=== PATIENT | female | born 1955 | race Caucasian/White ===

== ENCOUNTER → 2020-01-29 14:00 | Outpatient (CLI) | payer OTHER, SELFPAY ==
--- NOTE | ~2020-01-29 | MM_ITS ---
EXAMINATION: MM screening [facility] BI w martha HISTORY: Screening mammogram TECHNIQUE: Craniocaudal and mediolateral oblique 3-D tomosynthesis images were obtained and synthetic 2-D images were generated. CAD analysis was submitted and interpreted. COMPARISON: 12/13/2018, 06/20/2017, 07/07/2016 BREAST PARENCHYMAL COMPOSITION: There are scattered areas of fibroglandular density. FINDINGS: There is no evidence of suspicious mass, calcification, or architectural distortion to sugg est malignancy in either breast. There has been no suspicious interval change. IMPRESSION: 1. No mammographic evidence of malignancy. 2. Recommend routine screening mammography in one year. BI-RADS Category 1: Negative Reviewed, dictated and finalized at location A.
== END ==
PROVIDERS: PCP Nurse Practitioner Adult Health; Visit Provider Nurse Practitioner Adult Health
DX: Z12.31 Encounter for screening mammogram for malignant neoplasm of breast (principal)
CPT/HCPCS: 77063; 77067

== ENCOUNTER → 2021-01-04 08:28 | Outpatient (CLI) | payer OTHER, SELFPAY ==
--- NOTE | ~2021-01-04 | XR_ITS ---
EXAMINATION: XR thoracic spine 3V DATE: 01/04/2021 08:47 INDICATION: Thoracic back pain TECHNIQUE: AP, lateral and lateral swimmer's views of the thoracic spine were obtained. COMPARISON: 06/09/2019 FINDINGS: The vertebral body heights and alignment are normal. There is mild loss of intervertebral d isc space in the midthoracic spine. There are bridging osteophytes at multiple levels in the spine, c onsistent with diffuse idiopathic skeletal hyperostosis (DISH). There is no fracture. Moderate to sev ere cervical spondylosis is noted. IMPRESSION: 1. Diffuse idiopathic skeletal hyperostosis without acute findings. Reviewed, dictated and finalized at location A.
== END ==
PROVIDERS: PCP Nurse Practitioner Adult Health; Visit Provider Nurse Practitioner Adult Health
DX: M47.812 Spondylosis without myelopathy or radiculopathy, cervical region (principal)
CPT/HCPCS: 72072

== ENCOUNTER → 2021-05-17 15:17 | Outpatient (CLI) | payer OTHER, SELFPAY ==
--- NOTE | ~2021-05-17 | MM_ITS ---
EXAMINATION: MM screening [facility] BI w martha HISTORY: Screening TECHNIQUE: Craniocaudal and mediolateral oblique 3-D tomosynthesis images were obtained and synthetic 2-D images were generated. CAD analysis was submitted and interpreted. COMPARISON: Comparison to multiple prior studies sequentially, with oldest reviewed study dated 06/14. BREAST PARENCHYMAL COMPOSITION: There are scattered areas of fibroglandular density. FINDINGS: There is no evidence of suspicious mass, calcification, or architectural distortion to sugg est malignancy in either breast. There has been no suspicious interval change. IMPRESSION: 1. No mammographic evidence of malignancy. 2. Recommend routine screening mammography in one year. BI-RADS Category 1: Negative Reviewed, dictated and finalized at location A.
== END ==
PROVIDERS: PCP Nurse Practitioner Adult Health; Visit Provider Obstetrics & Gynecology
DX: Z12.31 Encounter for screening mammogram for malignant neoplasm of breast (principal)
CPT/HCPCS: 77063; 77067

== ENCOUNTER → 2022-04-18 10:29 | Outpatient (CLI) | payer OTHER, SELFPAY ==
--- NOTE | ~2022-04-18 | XR_ITS ---
EXAM: XR knee LT 3V DATE: 04/18/2022 10:41 HISTORY: NO INJURY ANTERIOR LEFT KNEE PAIN . COMPARISON: None available. FINDINGS: Normal mineralization. No fracture or dislocation. No lytic or blastic lesion. Moderate tr icompartmental osteophytosis. Lateral subluxation and joint space narrowing at the patellofemoral carlos nt. No erosion or periosteal change. Soft tissues within normal limits. Small volume joint effusion. IMPRESSION: Moderate tricompartmental osteoarthritis, worst in the patellofemoral compartment. Reviewed, dictated and finalized at location K. IMPRESSION: Moderate tricompartmental osteoarthritis, worst in the patellofemor al compartment.
== END ==
PROVIDERS: PCP Nurse Practitioner Adult Health; Visit Provider Nurse Practitioner Adult Health
DX: M17.12 Unilateral primary osteoarthritis, left knee (principal)
CPT/HCPCS: 73562

== ENCOUNTER 2022-09-11 08:54 | Outpatient (CLI) | payer OTHER, SELFPAY ==
--- NOTE | ~2022-09-11 | DEXA_ITS ---
Bone Density Report Name: NOHEMI RUSH Age: 67 Sex: Female Ethnicity: White Date of : 1955 Indication: postmenopausal; screening for osteoporosis; hysterectomy; Referring Provider: Ivette, Emma Marie Study: Bone densitometry was performed. Exam Date: September 11, 2022 Accession number: [id number] Bone Density: Region BMD T-score Z-score Classification AP Spine (L1, L2) 1.343 3.3 5.3 Normal Femoral Neck (Left) 1.056 1.9 3.6 Normal Total Hip (Left) 1.273 2.7 4.2 Normal Femoral Neck (Right) 1.014 1.5 3.3 Normal Total Hip (Right) 1.187 2.0 3.5 Normal Total Hip Mean 1.230 2.4 3.9 Normal World Health Organization criteria for BMD impression classify patients as: Normal (T-score at or above -1.0), Osteopenia (T-score between -1.0 and -2.5), or Osteoporosis (T-score at or below -2.5). 10-year Fracture Risk: FRAX not reported because: All T-scores for Spine Total, Hip Total, Femoral Neck at or above -1.0 Previous Exams: Region Exam Age BMD T-score BMD Change BMD Change Date g/cm2 vs Baseline vs Previous AP Spine(L1, L2) 09/11/2022 67 1.343 3.3 0.058 0.036 06/16/2014 59 1.306 3.0 0.021 0.044* 06/27/2011 56 1.262 2.6 -0.023 0.047* 03/14/2007 52 1.215 2.1 -0.070 -0.070 10/14/2003 48 1.285 2.8 Total Hip(Left) 09/11/2022 67 1.273 2.7 0.007 0.005 06/20/2017 62 1.268 2.7 0.002 0.040* 06/16/2014 59 1.228 2.3 -0.038 -0.008 06/27/2011 56 1.235 2.4 -0.031 0.000 03/14/2007 52 1.235 2.4 -0.031 -0.031 10/14/2003 48 1.266 2.7 Total Hip(Right) 09/11/2022 67 1.187 2.0 -0.018 -0.050 06/20/2017 62 1.238 2.4 0.032 0.058* 06/16/2014 59 1.180 2.0 -0.025 -0.004 06/27/2011 56 1.184 2.0 -0.021 0.029* 03/14/2007 52 1.155 1.7 -0.050 -0.050 10/14/2003 48 1.206 2.2 *Denotes significance at 95% confidence level, LSC for AP Spine = 0.022 g/cm2, LSC for Total Hip = 0.027 g/cm2 Clinical Information Provided by Patient: Has used the following medications: HRT (i.e. estrogen/hormone therapy), Vitamin D, MTV Has the following medical conditions: Hysterectomy Patient maximum height was 68 Menopause Age: 38 No regular weight bearing exercise Onset of menses at age 10 Numb
== END 2022-09-11 08:55 ==
PROVIDERS: PCP Nurse Practitioner Family; Visit Provider Nurse Practitioner Family
DX: N95.1 Menopausal and female climacteric states (principal)
CPT/HCPCS: 77080

== ENCOUNTER → 2022-09-20 10:20 | Outpatient (CLI) | payer OTHER, SELFPAY ==
--- NOTE | ~2022-09-20 | MM_ITS ---
EXAMINATION: MM screening [facility] BI w martha HISTORY: Screening mammogram TECHNIQUE: Craniocaudal and mediolateral oblique 3-D tomosynthesis images were obtained and synthetic 2-D images were generated. CAD analysis was submitted and interpreted. COMPARISON: 05/17/2021, 01/29/2020, 12/13/2018 BREAST PARENCHYMAL COMPOSITION: There are scattered areas of fibroglandular density. FINDINGS: No suspicious mass, calcification, or architectural distortion are identified in either trent ast to suggest malignancy. There has been no suspicious interval change. IMPRESSION: 1. No mammographic evidence of malignancy. 2. Recommend routine screening mammography in one year. BI-RADS Category 1: Negative Reviewed, dictated and finalized at location A. ISITIONS EDITOR
== END ==
PROVIDERS: PCP Nurse Practitioner Family; Visit Provider Obstetrics & Gynecology
DX: Z12.31 Encounter for screening mammogram for malignant neoplasm of breast (principal)
CPT/HCPCS: 77063; 77067

== ENCOUNTER → 2023-03-11 11:31 | Outpatient (CLI) | payer OTHER, SELFPAY ==
--- NOTE | ~2023-03-11 | XR_ITS ---
Right Hand Technique: PA, oblique, and lateral views were obtained. Clinical History: Pain Findings: No acute fracture or dislocation is seen. Osseous alignment is anatomic. Joint spaces are p reserved. Soft tissues are unremarkable. Impression: Unremarkable right hand. Reviewed, dictated and finalized at location M. Impression: Unremarkable right hand.
== END ==
PROVIDERS: PCP Nurse Practitioner Family; Visit Provider Family Medicine
DX: M79.644 Pain in right finger(s) (principal)
CPT/HCPCS: 73130

== ENCOUNTER 2023-06-14 02:07 | Day surgery (SDC) | payer OTHER, SELFPAY ==
[2023-06-05 13:13] VITALS: BMI 33.7
--- NOTE | 2023-06-05 13:15 | PC.NURSE ---
Report to the Outpatient Waiting Room, entrance under the green pavilion located off [facility], at time _0700_ on date _06-14-2023_. Planned Procedure Time: _0900_. Time changes happen often and if your time is changed the preop area will call you the afternoon before. - You and your visitor will be asked to self-screen and do not enter if you have any COVID symptoms. - A mask is optional within the hospital at this time. Patients may have clear liquids (water, carbonated beverages, clear teas, apple juice) until 3 hours prior to surgery with a maximum of 20 ounces. - No food from midnight until time of surgery Take the following medications with a SIP of water the morning of surgery: ___Metoprolol DO NOT STOP ANY OF YOUR OTHER PRESCRIPTION MEDICATIONS PRIOR TO SURGERY ?EXCEPT THE FOLLOWING Medications to discontinue per physician All vitamins Date to take last [id number] Please no make-up, nail frisian, hairspray, perfume, deodorant, or body powder the day of surgery. No jewelry (including any body piercings) or valuables the day of surgery, leave them at home. Please take a shower or bath the night before, or the morning of, surgery with an antibacterial soap. Wear comfortable, loose fitting clothing. - Jewelry must be removed prior to entering the operating room. Rings and piercings that are not removed may be cut off. - The hospital will not accept responsibility for valuables. - Please leave all valuables, including medications, at home the day of surgery. If you are going home after surgery, a licensed subway train driver must drive you home. - NO public transportation without another adult if you receive anesthesia. - We recommend that an adult stay with you for 24 hours following discharge. - We also recommend that you do not drive, make important decision, drink alcoholic beverages, or take any drugs that were not prescribed by your health care provider for at least 24 hours after your discharge time. Follow any additional instructions given to you from your surgeon. If you or anyone in your household have experienced Covid symptoms in the past week, please notify your surgeon or the nurse liaison at the phone number below for possible testing. Telephone instructions given to _Shirley_and asked if any additional questions and then verbalized understanding. Patient advised to call surgeon office or pre surgery nurse liaison [phone] if any additional questions.
--- NOTE | 2023-06-08 18:23 | PM.IMHP ---
H&P: HPI History of Present Illness Date/Time: 06/08/23 18:23 Chief Complaint: incontinence Narrative: WILDER documented on urodynamics Review of Systems Review of Systems: All systems reviewed & are unremarkable except as noted in HPI and below [facility] Past Medical History Medical History Anemia Anxiety and depression Asthma Bronchitis Chronic renal failure, stage 3 (moderate) Cyst of ovary Frequent UTI High cholesterol Screening mammogram, encounter for Seasonal allergies Sleep apnea Surgical History Surgical History History of hysterectomy (~1992) partial History of left salpingo-oophorectomy (02/10/18) removed Dr. Cali @ [facility], (L) ovary with serous cystadenoma History of removal of skin mole (~2008) (L) breast History of surgery on arm (~2009) (L) arm calcium deposit removed History of tonsillectomy (~1957) Family History Family History Mother Atrial fibrillation Hypertension Diabetes mellitus Cerebrovascular accident Chronic renal failure stent in kidney Grandparent Hypertension maternal grandmother Breast cancer maternal grandmother paternal grandmother Alzheimer's disease maternal grandmother Father Cerebrovascular accident Macular degeneration Other Breast cancer maternal aunt Social History Social History Smoking status: Never smoker Second hand tobacco smoke exposure: No Alcohol intake: current Drinks per week: 3 Substance use: never Substance use type: does not use Living arrangements: with family Additional living arrangements comments: Occupation/Education: retired Gender identity (if verbalized by the patient): Female Sexual Orientation (if Verbalized by the Patient): Straight or Heterosexual Spiritual care concerns: No Meds Home Medications and Allergies Home Medications Medication Instructions Recorded Confirmed Type cetirizine 10 mg capsule 10 mg PO DAILY 12/21/19 06/05/23 History cholecalciferol (vitamin D3) 50 50 mcg PO DAILY 12/21/19 06/05/23 History mcg (2,000 unit) capsule metoprolol succinate 50 mg capsule 50 mg PO DAILY 12/21/19 06/05/23 History sprinkle, ext. release 24 hr montelukast 10 mg tablet 10 mg PO DAILY 12/21/19 06/05/23 History multivitamin 1 tablet PO DAILY 12/21/19 06/05/23 History atorvastatin 20 mg tablet 20 mg PO DAILY 07/02/22 06/05/23 History golimumab 12.5 mg/mL intravenous 12.5 mg IV ONCE 07/02/22 06/05/23 History solution (Simponi ARIA) estradiol 0.5 mg tablet 0.5 mg PO DAILY #90 tabs 07/18/22 06/05/23 Rx diclofenac sodium 75 mg 75 mg PO DAILY 06/05/23 06/05/23 History tablet,delayed release famotidine 40 mg tablet 40 mg PO DAILY 06/05/23 06/05/23 History gabapentin 300 mg capsule 300 mg PO DAILY PRN Pain 06/05/23 06/05/23 History lisinopril 10 mg tablet 10 mg PO DAILY 06/05/23 06/05/23 History prednisone 5 mg tablet 5 mg PO DAILY PRN Pain 06/05/23 06/05/23 History tramadol 50 mg tablet 50 mg PO QID PRN Pain 06/05/23 06/05/23 History Allergies Allergy/AdvReac Type Severity Reaction Status Date / Time naproxen [From Anaprox] Allergy Severe Rash Verified 06/05/23 13:26 amlodipine Allergy Mild swelling Verified 06/05/23 13:26 and rash Exam Narrative: NAD Normal breathing + urethral mobility Assessment and Plan Assessment and plan (1) WILDER (stress urinary incontinence, female): Code(s): N39.3 - Stress incontinence (female) (male) Status: Acute Assessment and Plan: urethral slking. Risks bennifits and alternative discussed and documented in office chart
--- NOTE | 2023-06-13 15:10 | WPDANESEPPF ---
Anes - Initial Pre Proc Eval Procedure: Operation Date: 06/14/23 09:00 Proposed Procedures p Urethral Sling - Octaviano Pires MD Date/Time: 06/13/23 15:10 Surgeon: Octaviano Pires MD Pre Op Diagnosis: stress incont Patient Data Age: 68 Gender: F Height: 1.7 m Weight: 97.7 kg Allergies Allergy/AdvReac Type Severity Reaction Status Date / Time naproxen [From Anaprox] Allergy Severe Rash Verified 06/05/23 13:26 amlodipine Allergy Mild swelling Verified 06/05/23 13:26 and rash Home Medications Medication Instructions Recorded Confirmed Type cetirizine 10 mg capsule 10 mg PO DAILY 12/21/19 06/05/23 History cholecalciferol (vitamin D3) 50 50 mcg PO DAILY 12/21/19 06/05/23 History mcg (2,000 unit) capsule metoprolol succinate 50 mg capsule 50 mg PO DAILY 12/21/19 06/05/23 History sprinkle, ext. release 24 hr montelukast 10 mg tablet 10 mg PO DAILY 12/21/19 06/05/23 History multivitamin 1 tablet PO DAILY 12/21/19 06/05/23 History atorvastatin 20 mg tablet 20 mg PO DAILY 07/02/22 06/05/23 History golimumab 12.5 mg/mL intravenous 12.5 mg IV ONCE 07/02/22 06/05/23 History solution (Simponi ARIA) estradiol 0.5 mg tablet 0.5 mg PO DAILY #90 tabs 07/18/22 06/05/23 Rx diclofenac sodium 75 mg 75 mg PO DAILY 06/05/23 06/05/23 History tablet,delayed release famotidine 40 mg tablet 40 mg PO DAILY 06/05/23 06/05/23 History gabapentin 300 mg capsule 300 mg PO DAILY PRN Pain 06/05/23 06/05/23 History lisinopril 10 mg tablet 10 mg PO DAILY 06/05/23 06/05/23 History prednisone 5 mg tablet 5 mg PO DAILY PRN Pain 06/05/23 06/05/23 History tramadol 50 mg tablet 50 mg PO QID PRN Pain 06/05/23 06/05/23 History Patient hx anesthesia problems: none Family hx anesthesia problems: none Results Review: All pre-operative results and documents have been reviewed as part of the pre-operative evaluation. [facility] Past Medical History Medical History (Updated 06/13/23 @ 15:10 by Jose Daniel Tran DO) Anemia Anxiety and depression Asthma Bronchitis Chronic renal failure, stage 3 (moderate) Cyst of ovary Frequent UTI High cholesterol Hypertension Screening mammogram, encounter for Seasonal allergies Sleep apnea Surgical History Surgical History History of hysterectomy (~1992) partial History of left salpingo-oophorectomy (02/10/18) removed Dr. Cali @ [facility], (L) ovary with serous cystadenoma History of removal of skin mole (~2008) (L) breast History of surgery on arm (~2009) (L) arm calcium deposit removed History of tonsillectomy (~1957) Family History Family History Mother Atrial fibrillation Hypertension Diabetes mellitus Cerebrovascular accident Chronic renal failure stent in kidney Grandparent Hypertension maternal grandmother Breast cancer maternal grandmother paternal grandmother Alzheimer's disease maternal grandmother Father Cerebrovascular accident Macular degeneration Other Breast cancer maternal aunt Social History Social History Smoking status: Never smoker Second hand tobacco smoke exposure: No Alcohol intake: current Drinks per week: 3 Substance use: never Substance use type: does not use Living arrangements: with family Additional living arrangements comments: Occupation/Education: retired Gender identity (if verbalized by the patient): Female Sexual Orientation (if Verbalized by the Patient): Straight or Heterosexual Spiritual care concerns: No Anes - Eval Final PreProcedure Day of Procedure 06/13/23 15:10 Patient weight: obese Heart: regular rate and rhythm Lungs: clear to auscultation Airway: Mallampati scale class II Neurological: alert and oriented Last oral intake: >/= 8 hours ASA c
[2023-06-14 07:07] VITALS: BP 160/80; PULSE 57; RESP 16; TEMP 36.4; O2SAT 98
[2023-06-14 07:10] VITALS: BMI 33.6
--- NOTE | 2023-06-14 07:19 | WPDHPUPDATE1 ---
History and Physical Update Update Date/Time: 06/14/23 07:19 History and Physical has been reviewed, including an updated exam of the patient. There are NO changes in the patient's condition. Risks, benefits, and alternatives have been discussed and questions answered. Patient agrees to proceed with procedure.
[2023-06-14] MEDS: LACTATED RINGERS 1,000 ML 30 ML IV CONT (08:15)
[2023-06-14] MEDS: ceFAZolin 2 GM/D5W 50 ML 2 GM/50 ML BAG IVPB (09:00)
--- NOTE | 2023-06-14 09:34 | SUR.OPER ---
ebl 30
[2023-06-14 09:42] VITALS: BP 144/75; PULSE 59; RESP 16; O2SAT 100
[2023-06-14] MEDS: BUPIVACAINE/EPINEPHRINE 0.5% 50 ML VIAL 10 ML INFILTRATE (09:51)
--- NOTE | 2023-06-14 09:52 | W.PM.PROC2 ---
Procedure Note - Detailed Date of Procedure 06/14/23 Pre-op Diagnosis stress incont Post-op Diagnosis Same Procedure Performed mid urethral sling cystoscopy Surgeon Octaviano Pires MD Anesthesia MAC and Local Indications This is a female with confirm stress urinary incontinence. She desires surgical correction. She understands the risks of bleeding, infection, injury to the urinary tract, vaginal mesh extrusion, urinary tract mesh erosion, obstructive voiding requiring a secondary procedure, hip and leg pain, dyspareunia, inability to improve overactive bladder symptoms. She agrees to proceed. Description of Procedure She was correctly identified. Informed consent obtained. She was brought the operating room. She was given appropriate anesthesia. She was given appropriate perioperative antibiotics. A time-out performed. I marked out the site of the inner thigh incisions. I anesthetized the skin and made those incisions. I anesthetized the anterior vaginal wall over the mid urethra. I made a 1 cm incision. I dissected out laterally taking great care not to injure the refilled vaginal wall. I passed the helical trocars. First on the left. Then on the right. I did this from the thigh incision towards the vaginal incision. The sling was connected to the trocars and brought out through the thigh incision. I tensioned the sling appropriately. I cut and the plastic sheaths. I then closed the incision with 2 0 Vicryl. On cystoscopy there is no tumors or surgical artifact. There was no surgical artifact in the urethra. I cut the excess sling material. Close incisions with glue. She was awakened and transferred to the PACU in stable condition. Implants Urethral sling Drains No Packing No Pathology None sent Complications No immediate complications Condition Stable Disposition PACU
[2023-06-14 10:10] VITALS: BP 162/81; PULSE 54; O2SAT 99
[2023-06-14 10:40] VITALS: BP 167/79; PULSE 47
== END 2023-06-14 10:58 | disposition home or self-care (01) ==
PROVIDERS: PCP Nurse Practitioner Family; Visit Provider Urology
PROC: (CPT 57288; principal; 2023-06-14 09:00)
DX: N39.3 Stress incontinence (female) (male) (principal); D64.9 Anemia, unspecified; E78.00 Pure hypercholesterolemia, unspecified; Z79.891 Long term (current) use of opiate analgesic; J45.909 Unspecified asthma, uncomplicated; G47.30 Sleep apnea, unspecified; F41.8 Other specified anxiety disorders; N18.30 Chronic kidney disease, stage 3 unspecified; E66.9 Obesity, unspecified; Z68.33 Body mass index [BMI] 33.0-33.9, adult; Z82.49 Family history of ischemic heart disease and other diseases of the circulatory system; Z80.3 Family history of malignant neoplasm of breast
CPT/HCPCS: 57288; C1771; J0690; J2250; J2704; J3010; J7030; J7120

== ENCOUNTER 2023-10-28 16:46 | Outpatient (CLI) | payer MEDICARE, SELFPAY ==
--- NOTE | ~2023-10-28 | XR_ITS ---
EXAMINATION: XR foot RT min 3V DATE: 10/28/2023 17:08 INDICATION: Right foot pain. TECHNIQUE: 3 views of right foot were obtained. COMPARISON: None. FINDINGS: Bone alignment is normal. No fracture. There is mild osteoarthritis of first metatarsophala ngeal joint and some of the interphalangeal joints and midfoot joints. There are enthesophytes at the posterior and plantar aspects of calcaneal tuberosity. IMPRESSION: 1. Mild polyarticular osteoarthritis. Reviewed, dictated and finalized at location E.
--- NOTE | ~2023-10-28 | XR_ITS ---
EXAMINATION: XR foot LT min 3V DATE: 10/28/2023 17:08 INDICATION: Left foot pain. TECHNIQUE: 3 views of left foot were obtained. COMPARISON: None. FINDINGS: There are changes of bunionectomy with 2 screws in first metatarsal and screw in first prox imal phalanx. There is a healed osteotomy of neck of second metatarsal with screw fixation. No acute fracture. There is mild osteoarthritis of first metatarsophalangeal joint and some of the interphalan geal joints. There are enthesophytes at the posterior and plantar aspects of calcaneal tuberosity. IMPRESSION: 1. Mild polyarticular osteoarthritis. Reviewed, dictated and finalized at location E.
--- NOTE | ~2023-10-28 | XR_ITS ---
EXAMINATION: XR hip RT 2V w AP pelvis DATE: 10/28/2023 17:08 INDICATION: Right hip pain. TECHNIQUE: An anteroposterior view of the pelvis and 2 views of right hip were obtained. COMPARISON: None. FINDINGS: There is lumbar dextrocurvature and severe spondylosis. No fracture. There is mild osteoart hritis of the hips. IMPRESSION: 1. Mild osteoarthritis of the hips. Reviewed, dictated and finalized at location E.
== END 2023-10-28 16:47 ==
PROVIDERS: PCP Family Medicine; Visit Provider Family Medicine
DX: M16.0 Bilateral primary osteoarthritis of hip (principal); M19.072 Primary osteoarthritis, left ankle and foot; M19.071 Primary osteoarthritis, right ankle and foot
CPT/HCPCS: 73502; 73630

== ENCOUNTER 2024-05-07 15:31 | Outpatient (CLI) | payer MEDICARE, SELFPAY ==
--- NOTE | ~2024-05-07 | MM_ITS ---
EXAMINATION: MM screening [facility] BI w martha HISTORY: Screening TECHNIQUE: Craniocaudal and mediolateral oblique 3-D tomosynthesis images were obtained and synthetic 2-D images were generated. CAD analysis was submitted and interpreted. COMPARISON: Comparison to multiple prior studies sequentially, with oldest reviewed study dated 06/15. BREAST PARENCHYMAL COMPOSITION: Not dense: There are scattered areas of fibroglandular density. FINDINGS: There is a developing focal asymmetry in the lower outer quadrant of the right breast, ante rior third. The left breast is stable without evidence for malignancy. IMPRESSION: 1. Developing right breast asymmetry. 2. Additional mammographic views and possible breast ultrasound are recommended. BI-RADS Category 0: Incomplete: Needs additional imaging evaluation. Reviewed, dictated and finalized at location B. IMPRESSION: 1. Developing right breast asymmetry. 2. Additional mammographic views and possible breast ultrasound are recommended . BI-RADS Category 0: Incomplete: Needs additional imaging evaluation.
== END 2024-05-07 15:32 | disposition home or self-care (01) ==
LOC: MICIMG 15:32
PROVIDERS: PCP Obstetrics & Gynecology; Visit Provider Obstetrics & Gynecology
DX: Z12.31 Encounter for screening mammogram for malignant neoplasm of breast (principal)
CPT/HCPCS: 77063; 77067

== ENCOUNTER 2024-06-02 09:17 | Outpatient (CLI) | payer MEDICARE, SELFPAY ==
--- NOTE | ~2024-06-02 | MMUS_ITS ---
EXAMINATION: MM diagnostic [facility] RT w martha, US breast RT limited HISTORY: Right breast asymmetry TECHNIQUE: Additional 3-D tomosynthesis images of the right breast were performed and synthetic 2-D i mages were generated. CAD analysis was submitted and interpreted. High resolution limited right breas t ultrasound was performed. COMPARISON: 05/07/2024, 09/20/2022 BREAST PARENCHYMAL COMPOSITION:Not Dense. There are scattered areas of fibroglandular density. FINDINGS: MAMMOGRAPHIC FINDINGS: The asymmetry appears to efface with spot compression. No definite persistent mass lesion or distorti on are identified. No suspicious magnification. ULTRASOUND: Sonographic imaging of the right subareolar region demonstrate a few minimally dilated ducts. No joyce d mass or intraductal mass evident. IMPRESSION: No evidence for malignancy. Several minimally dilated ducts in the right subareolar region. BI-RADS Category 2: Benign finding(s). Reviewed, dictated and finalized at location . EDITED PHARMACY TECHNICIAN IMPRESSION: No evidence for malignancy. Several minimally dilated ducts in the right subar eolar region. BI-RADS Category 2: Benign finding(s).
== END 2024-06-02 09:18 | disposition home or self-care (01) ==
PROVIDERS: PCP Obstetrics & Gynecology; Visit Provider Obstetrics & Gynecology
DX: N64.89 Other specified disorders of breast (principal)
CPT/HCPCS: 76642; 77061; 77065; G0279

== ENCOUNTER 2024-09-23 13:54 | Outpatient (CLI) | payer MEDICARE, SELFPAY ==
--- NOTE | ~2024-09-23 | XR_ITS ---
XR hand RT min 3V Ordering provider: Jessy Fuchs History: . R wrist pain . Comparison: None. FINDINGS: BONES: No acute fracture or dislocation. JOINT SPACES: Slight narrowing of the proximal and distal interphalangeal dens. SOFT TISSUES: Normal. IMPRESSION: No acute osseous abnormality right hand. Polyarticular osteoarthritic changes. Reviewed, dictated and finalized at location A.
== END 2024-09-23 13:55 | disposition home or self-care (01) ==
DX: M19.041 Primary osteoarthritis, right hand (principal)
CPT/HCPCS: 73130

== ENCOUNTER 2024-11-09 13:02 | Outpatient (CLI) | payer MEDICARE, SELFPAY ==
--- NOTE | ~2024-11-09 | XR_ITS ---
XR hand LT min 3V Ordering provider: Shruthi Syed, NANCY History: . Finger pain, left . Comparison: None. FINDINGS: BONES: No acute fracture or dislocation. JOINT SPACES: Narrowing of the proximal and distal interphalangeal joints. SOFT TISSUES: Unremarkable. IMPRESSION: No acute osseous abnormality left hand. Polyarticular osteoarthritic changes. Reviewed, dictated and finalized at location A.
== END 2024-11-09 13:03 | disposition home or self-care (01) ==
LOC: MICIMG 13:04
PROVIDERS: PCP Physician Assistant; Visit Provider Physician Assistant
DX: M79.645 Pain in left finger(s) (principal)
CPT/HCPCS: 73130

== ENCOUNTER 2025-01-29 07:47 | Outpatient (CLI) | payer MEDICARE, SELFPAY ==
--- NOTE | ~2025-01-29 | DEXA_ITS ---
Bone Density Report Name: NOHEMI RUSH Age: 69 Sex: Female Ethnicity: White Date of : 1955 Indication: postmenopausal; screening for osteoporosis; height loss; hysterectomy; Referring Provider: Kate, Nicole Study: Bone densitometry was performed. Exam Date: January 29, 2025 Accession number: [id number] Bone Density: Region BMD T-score Z-score Classification AP Spine(L1, L2) 1.320 3.1 5.2 Normal Femoral Neck (Left) 0.983 1.2 3.1 Normal Total Hip (Left) 1.313 3.0 4.7 Normal Femoral Neck (Right) 0.985 1.2 3.1 Normal Total Hip (Right) 1.201 2.1 3.7 Normal Total Hip Mean 1.257 2.6 4.2 Normal World Health Organization criteria for BMD impression classify patients as: Normal (T-score at or above -1.0), Osteopenia (T-score between -1.0 and -2.5), or Osteoporosis (T-score at or below -2.5). 10-year Fracture Risk: FRAX not reported because: All T-scores for Spine Total, Hip Total, Femoral Neck at or above -1.0 Previous Exams: -- Region Exam Age BMD T-score BMD Change BMD Change Date g/cm2 vs Baseline vs Previous -- AP Spine (L1-L2) 01/29/2025 69 1.320 3.1 2.8%# -1.7%# 09/11/2022 67 1.343 3.3 4.5%# 2.8%# 06/16/2014 59 1.306 3.0 1.6%# 3.5%* 06/27/2011 56 1.262 2.6 -1.8%# 3.9%* 03/14/2007 52 1.215 2.1 -5.4%# -5.4%# 10/14/2003 48 1.285 2.8 Total Hip(Left) 01/29/2025 69 1.313 3.0 3.7%# 3.2%# 09/11/2022 67 1.273 2.7 0.5%# 0.4%# 06/20/2017 62 1.268 2.7 0.1%# 3.3%* 06/16/2014 59 1.228 2.3 -3.0%# -0.6% 06/27/2011 56 1.235 2.4 -2.4%# 0.0% 03/14/2007 52 1.235 2.4 -2.4%# -2.4%# 10/14/2003 48 1.266 2.7 Total Hip(Right) 01/29/2025 69 1.201 2.1 -0.4%# 1.1%# 09/11/2022 67 1.187 2.0 -1.5%# -4.1%# 06/20/2017 62 1.238 2.4 2.7%# 4.9%* 06/16/2014 59 1.180 2.0 -2.1%# -0.3% 06/27/2011 56 1.184 2.0 -1.8%# 2.5%* 03/14/2007 52 1.155 1.7 -4.2%# -4.2%# 10/14/2003 48 1.206 2.2 -- *Denotes significance at 95% confidence level, LSC for AP Spine = 0.022 g/cm2, LSC for Total Hip = 0.027 g/cm2 Rate of change results reflect vertebral levels common to all scans # Denotes dissimilar scan types or analysis methods Clinical Information Provided by Patient: Has used the following medications: HRT (i.e. estrogen/hormone therapy), Vitamin D, Calcium, MTV Has the following medical conditions: Hysterectomy Patient maximum height was 68.0 Menopause Age: 38 No regular weight bearing exercise Onset of menses at age 11 Number of children 2 Impression: The patient has normal bone mass. Unable to evaluate interval change due to the use of different scan modes. Discussion: LOW RISK OF FRACTURE; BONE DENSITY IS WELL ABOVE THE MINIMUM DESIRABLE LEVEL AND ABOVE AVERAGE FOR AGE AND SEX AT ALL SKELETAL SITES TESTED. This person's bone density is above expected limits for age and sex. This is rarely clinically significant, but should be pursued if there are significant musculoskeletal complaints. The patient should follow a healthful lifestyle (good nutrition with adequate calcium and vitamin D, and appropriate weight-bearing exercise). Follow-Up: Consider repeating this study in 5 years or sooner if there is some new clinical indication. Reported by: TON on 01/29/2025 8:25:00 AM. Reviewed, dictated and finalized at location A.
== END 2025-01-29 07:48 | disposition home or self-care (01) ==
PROVIDERS: PCP Family Medicine; Visit Provider Family Medicine
DX: M81.0 Age-related osteoporosis without current pathological fracture (principal); Z78.0 Asymptomatic menopausal state
CPT/HCPCS: 77080

== ENCOUNTER 2025-02-08 00:53 | Day surgery (SDC) | payer MEDICARE, SELFPAY ==
[2025-01-28 14:31] VITALS: BMI 33.7
--- OUTSIDE RECORDS SUMMARY | 2025-02-08 00:56 | XMS_ITS | Data Portability ---
Author Organization [place] [facility], Main Office Address [address] [place] [address] Care Team Providers Care Document Processing Specialist Name Role Phone MIRA DUNG Primary Care Provider Assessment Encounter Date Assessment Date Assessment LastModified by Organization Details LastModified Time 03/11/2023 03/11/2023 D/w pt about her findings and further plan of care. Will do x-ray. Meds as directed. Ice pack as directed prn. RICE explained in detail. Advised to avoid any strenuous activities/lifting -pushing until cleared. Educated pt about alarming symptoms to monitor at home and call us back or get checked in ED. F/u with PCP as directed. [email or web address] Not available 03/11/2023 12:20:11 10/08/2023 10/08/2023 Assessment: Moderate OSAHS, AHI = 21 Plan: The following were reviewed and explained to the patient: primary care/referral note [facility] home sleep study 06/27/20 AHI = 21 PAP compliance downloaded and interpreted x 20 minutes. Data reviewed and explained to the patient. Average apnea/hypopnea index (AHI) is 2.0. Patient used PAP > 4 hours 76% of the time. Major leakage is present times of use. PAP is set at 6-18 cmH2O. PAP will be reset at 7-11 cmH2O. Ramp start at 4 cmH2O. Ramp duration 45 minutes. Oxygen supplementation: none Patient is benefiting from PAP therapy. Encouraged patient to maintain PAP use more than 70% of the time. Statement of PAP use and benefits will be sent to the home care store. Educated the patient on problems and solutions associated with positive airway pressure (PAP) use. Difficulty tolerating pressure, mask leaks, intolerance of interface, nasal congestion, claustrophobic response, dry mouth, and unintentional mask removal during sleep were covered. Patient has some difficulty tolerating pressure. Patient is advised to practice wearing PAP daily while awake, lower pressure with or without sleeping on sides, activate PAP ramp feature, have blower checked to make sure pressure is set as prescribed and return to sleep center for consideration of auto-adjusting PAP therapy. Dry mouth is a normal occurrence for people who just start out on PAP therapy because they are not used to air blowing in to the throat to hold open. Dry mouth is exacerbated for people who wear nasal PAP mask and whose jaw drops open during sleep. Not only does this create a much less efficient therapy because of leakage, it also causes dry mouth. There are a couple solutions to help prevent this type of problem. A simple solution would be to wear a chinstrap which essentially holds the jaw in place. A second solution would be a switch to a full face mask which covers both the nose and mouth. Although this is another easy solution, using a full face mask for some could seem claustrophobic or confining. There is no silver bullet solution as no single mask is right for everybody. Sometimes it takes a bit of experimentation to find a PAP mask which best meets the patient's needs as well as fits comfortably. Another tactic is to use a humidifier on your PAP machine. Most new PAP machines have integrated humidifiers. Humidification is snyder when dealing with symptoms of dry mouth because the humidifier can supply both warm and room temperate air. Even a small amount of humidity in the airflow will help nasal passages to stay hydrated. If a person is using both a full face mask and a PAP machine with a heated humidifier and is still experiencing dry mouth, an ill-fitted PAP mask might be causing the problem. Leakage can be caused by a mask that is to large or small, the wrong style mask, the cushion is degraded or simply because the mask's straps aren't adjusted correctly. If leakage occurs, dry air from the room can leak in while humidification escapes. The result is reduced humidification within the circuit and resulting in dry throat and mouth. Finally, beyond factors involving the PAP machine and mask, dry mouth can also be caused or worsened by dehydration. The general recommendation to during eight 8 oz. glasses of water a day might be too little for many people. When people drink large amounts of coffee or other caffeine beverages, or sweat a lot during the day, making sure to rehydrate is an important part of PAP therapy. Patient tends to take of the PAP mask during sleep. We reassured patient that this is common. We address all other areas of headgear/nasal interface problems, especially nasal congestion. Patient can use humidification +/- chinstrap, put low-pressure alarm on blower unit to awaken patient to reposition mask and set alarm at night for patient to check headgear. Provided the patient with a list of local home care stores where positive airway pressure (PAP) units, accoutrement, and services are available. Home care store selection is based on patient's insurance carrier. Patient will setup an appointment with [facility] for supplies and pressure adjustments. A major predictor of success with use of PAP is follow-up with both the respiratory supplier and the treating physician. The respiratory supplier optimally will follow-up within two weeks after starting use while the treating physician optimally will follow-up within 90 days after starting therapy to assess adherence and effectiveness of treatment. The download results can show the treating physician information about adherence to treatment, residual AHI while on treatment and presence of large mask leakage. This information is especially helpful if the patient has residual sleepiness despite treatment. General information on sleep disordered breathing, evaluation of sleep disordered breathing, treatment with PAP therapy, and living with PAP therapy were covered. We discussed with the patient the impact of weight on: Sleep disordered breathing Hypertension Mixed hyperlipidemia GRACIELA Left knee OA DISH Lumbar scoliosis Lumbar spondylosis We discussed with the patient the benefit of PAP therapy on: Sleep disordered breathing Depression/Anxiety Rhinitis Hypertension GRACIELA Educated the patient on sleep hygiene measures. Relaxing rituals to rest easy, understanding foods with positive and negative impact on sleep, creating a peaceful sleep environment, timing of exercise, using herbal sleep aids, and practicing sleep-friendly meditation were covered. To determine how much sleep is needed, the patient will assess where she falls on the spectrum, examine what lifestyle factors such as stress is affecting the quality and quantity of sleep. In general, adults need 7-9 hours of sleep. Educated the patient regarding foods that promote sleep. These include but are not limited to cherries, bananas, toast, oatmeal, and warm milk. Educated the patient regarding foods and drinks to avoid before bedtime. These include but are not limited to aged cheese, chocolate, spicy foods, tomato-based sauces, soy, ginseng tea and processed meat. Advocated influenza vaccination annually and pneumonia vaccination JULIETTE. Advocated weight loss through diet and exercise. Patient's ideal body weight according to height and gender is up to 145 lbs. Encouraged patient to adjust caloric intake to maintain/achieve ideal body weight, emphasizing on fruits, vegetables, whole grains, and fat-free or low-fat products. These include lean meats, poultry, fish, beans, eggs, and nuts and foods that are low in saturated fats, trans-fats, cholesterol, salt (sodium), and glycemic index. Stressed the importance of regular exercise up to the patient's capacity limits. In this case, we recommend 20 min daily walking, 2 days a week of resistance training. Patient to monitor BP daily and bring records to PCP for further management. Follow-up: 1 year, September 2024 [email or web address] Not available 10/08/2023 11:10:30 09/16/2024 09/16/2024 Assessment: Moderate OSAHS, AHI = 21 Plan: The following were reviewed and explained to the patient: [facility] home sleep study 06/27/20 AHI = 21 PAP compliance downloaded and interpreted x 20 minutes. Data reviewed and explained to the patient. Average apnea/hypopnea index (AHI) is 5.2. Patient used PAP > 4 hours 88% of the time. PAP is set at 7-17 cmH2O. PAP will be reset at 8-17 cmH2O. Keep ramp start at 4 cmH2O. Keep ramp duration 45 minutes. 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 Keep humidifier level at 4. Oxygen supplementation: none Patient is benefiting from PAP therapy. Encouraged patient to maintain PAP use more than 70% of the time. Statement of PAP use and benefits will be sent to the home care store. Educated the patient on problems and solutions associated with positive airway pressure (PAP) use. Difficulty tolerating pressure, mask leaks, intolerance of interface, nasal congestion, claustrophobic response, dry mouth, and unintentional mask removal during sleep were covered. Patient has some difficulty tolerating pressure. Patient is advised to practice wearing PAP daily while awake, lower pressure with or without sleeping on sides, activate PAP ramp feature, have blower checked to make sure pressure is set as prescribed and return to sleep center for consideration of auto-adjusting PAP therapy. Dry mouth is a normal occurrence for people who just start out on PAP therapy because they are not used to air blowing in to the throat to hold open. Dry mouth is exacerbated for people who wear nasal PAP mask and whose jaw drops open during sleep. Not only does this create a much less efficient therapy because of leakage, it also causes dry mouth. There are a couple solutions to help prevent this type of problem. A simple solution would be to wear a chinstrap which essentially holds the jaw in place. A second solution would be a switch to a full face mask which covers both the nose and mouth. Although this is another easy solution, using a full face mask for some could seem claustrophobic or confining. There is no silver bullet solution as no single mask is right for everybody. Sometimes it takes a bit of experimentation to find a PAP mask which best meets the patient's needs as well as fits comfortably. Another tactic is to use a humidifier on your PAP machine. Most new PAP machines have integrated humidifiers. Humidification is snyder when dealing with symptoms of dry mouth because the humidifier can supply both warm and room temperate air. Even a small amount of humidity in the airflow will help nasal passages to stay hydrated. If a person is using both a full face mask and a PAP machine with a heated humidifier and is still experiencing dry mouth, an ill-fitted PAP mask might be causing the problem. Leakage can be caused by a mask that is to large or small, the wrong style mask, the cushion is degraded or simply because the mask's straps aren't adjusted correctly. If leakage occurs, dry air from the room can leak in while humidification escapes. The result is reduced humidification within the circuit and resulting in dry throat and mouth. Finally, beyond factors involving the PAP machine and mask, dry mouth can also be caused or worsened by dehydration. The general recommendation to during eight 8 oz. glasses of water a day might be too little for many people. When people drink large amounts of coffee or other caffeine beverages, or sweat a lot during the day, making sure to rehydrate is an important part of PAP therapy. Patient tends to take of the PAP mask during sleep. We reassured patient that this is common. We address all other areas of headgear/nasal interface problems, especially nasal congestion. Patient can use humidification +/- chinstrap, put low-pressure alarm on blower unit to awaken patient to reposition mask and set alarm at night for patient to check headgear. Provided the patient with a list of local home care stores where positive airway pressure (PAP) units, accoutrement, and services are available. Home care store selection is based on patient's insurance carrier. Patient will setup an appointment with [facility] for supplies and pressure adjustments. A major predictor of success with use of PAP is follow-up with both the respiratory supplier and the treating physician. The respiratory supplier optimally will follow-up within two weeks after starting use while the treating physician optimally will follow-up within 90 days after starting therapy to assess adherence and effectiveness of treatment. The download results can show the treating physician information about adherence to treatment, residual AHI while on treatment and presence of large mask leakage. This information is especially helpful if the patient has residual sleepiness despite treatment. General information on sleep disordered breathing, evaluation of sleep disordered breathing, treatment with PAP therapy, and living with PAP therapy were covered. We discussed with the patient the impact of weight on: Sleep disordered breathing Hypertension Mixed hyperlipidemia GRACIELA Left knee OA DISH Lumbar scoliosis Lumbar spondylosis We discussed with the patient the benefit of PAP therapy on: Sleep disordered breathing Depression/Anxiety Rhinitis Hypertension GRACIELA Educated the patient on sleep hygiene measures. Relaxing rituals to rest easy, understanding foods with positive and negative impact on sleep, creating a peaceful sleep environment, timing of exercise, using herbal sleep aids, and practicing sleep-friendly meditation were covered. To determine how much sleep is needed, the patient will assess where she falls on the spectrum, examine what lifestyle factors such as stress is affecting the quality and quantity of sleep. In general, adults need 7-9 hours of sleep. Educated the patient regarding foods that promote sleep. These include but are not limited to cherries, bananas, toast, oatmeal, and warm milk. Educated the patient regarding foods and drinks to avoid before bedtime. These include but are not limited to aged cheese, chocolate, spicy foods, tomato-based sauces, soy, ginseng tea and processed meat. Advocated influenza vaccination annually and pneumonia vaccination JULIETTE. Advocated weight loss through diet and exercise. Patient's ideal body weight according to height and gender is up to 145 lbs. Encouraged patient to adjust caloric intake to maintain/achieve ideal body weight, emphasizing on fruits, vegetables, whole grains, and fat-free or low-fat products. These include lean meats, poultry, fish, beans, eggs, and nuts and foods that are low in saturated fats, trans-fats, cholesterol, salt (sodium), and glycemic index. Stressed the importance of regular exercise up to the patient's capacity limits. In this case, we recommend 20 min daily walking, 2 days a week of resistance training. Patient to monitor BP daily and bring records to PCP for further management. Follow-up: 1 year, September 2025 [email or web address] Not available 09/16/2024 11:34:58 Plan of Treatment Reminders Order Date Submit Date Provider Last Modified By Organization Details Last Modified Time Details Appointments Any 30 2025 10:00A Aldo Jacobs MD Not available Not available Not available Lab urinalysi s, dipstick 2023 024 [facility], [address] [place] [address], [id number], 11/04/2023 15:46:57 culture, urine 2023 024 [facility], [address], [place], [address], 11/05/2023 08:04:07 Referral None recorded. Procedures None recorded. Surgeries None recorded. Imaging XR, foot, 3 or more view 2023 024 [facility], [address], [place], [address], 10/29/2023 00:41:26 XR, hip + pelvis, unilatera l 2023 024 [facility], [address], [place], [address], 10/29/2023 00:42:57 XR, hand, 3 or more view 2022 023 [facility], [address], [place], [address], 03/12/2023 12:42:37 Medication Orders ciproflox acin 500 mg tablet [address] [id number], [address] [facility], [place], [place], [id number], 01/15/2024 17:05:36 phenazopy ridine 200 mg tablet [address] [id number], [address] [facility], [place], [place], [id number], 01/15/2024 17:05:53 furosemid e 20 mg tablet [address] [email or web address], [address] [place] [address], [address], 01/15/2024 17:05:47 Medrol (Ildefonso) 4 mg tablets in a dose pack 2022 023 [id number], [address] [place], [place], [id number], 10/08/2023 10:30:30 Patient TargetsNo targets recorded. Patient InstructionsNo instructions recorded. Reason for Referral None Reported. Results Created Date Observation Date Name Description Value Unit Range Abnormal Flag Note LastModifiedBy Organization Detail LastModifiedTime 11/04/19 24 11/04/2023 urina lysis , dipst ick Leukocytes (reference range: negative nikky/ l) Large Not Available [address], [address], 11/04/2023 15:15:44 11/04/19 24 11/04/2023 urina lysis , dipst ick Nitrite (reference rage: negative mg/dl) positi ve Not Available [address], [address], 11/04/2023 15:15:44 11/04/19 24 11/04/2023 urina lysis , dipst ick Urobilinogen (reference range: 0.2-1 mg/dl) 1 Not Available [address], [address], 11/04/2023 15:15:44 11/04/19 24 11/04/2023 urina lysis , dipst ick Protein (reference range: negative mg/dl) Modera te Not Available [address], [address], 11/04/2023 15:15:44 11/04/19 24 11/04/2023 urina lysis , dipst ick pH (reference range: 5-7) 7.5 Not Available [address], [address], 11/04/2023 15:15:44 11/04/19 24 11/04/2023 urina lysis , dipst ick Blood (reference range: negative Albaro/ l) Small Not Available [address], [address], 11/04/2023 15:15:44 11/04/19 24 11/04/2023 urina lysis , dipst ick Specific [place] (reference range: 1.005-1.030) 1.020 Not Available [address], [address], 11/04/2023 15:15:44 11/04/19 24 11/04/2023 urina lysis , dipst ick Ketone (reference range: negative mg/dl) Trace Not Available [address], [address], 11/04/2023 15:15:44 04/22/11/04/2023 urina lysis , dipst ick Bilirubin (reference range: negative mg/dl) Negati ve Not Available [address], [address], 11/04/2023 15:15:44 11/04/19 24 11/04/2023 urina lysis , dipst ick Glucose (reference range: negative mg/dl) Negati ve Not Available [address], [address], 11/04/2023 15:15:44 11/04/19 24 11/04/2023 urina lysis , dipst ick Appearance Slight ly Cloudy Not Available [address], [address], 11/04/2023 15:15:44 11/04/19 24 11/04/2023 urina lysis , dipst ick Color Pale Yellow Not Available [address], [address], 11/04/2023 15:15:44 03/12/20 23 03/11/2023 XR, hand, 3 or more view No observ ation record ed. [email or web address] [facility] [address], [place], [address], 10/28/2023 17:16:29 10/29/19 24 10/28/2023 XR, foot, 3 or more view No observ ation record ed. [facility] [address], [place], [address], 10/29/2023 09:35:22 10/29/19 24 10/28/2023 XR, hip + pelvi s, unila teral No observ ation record ed. [email or web address] [facility] [address], [place], [address], 10/29/2023 09:35:23 10/29/19 24 10/28/2023 XR, foot, 3 or more view No observ ation record ed. [facility] [address], [place], [address], 10/29/2023 09:35:23 10/29/19 24 10/28/2023 XR, foot, 3 or more view No observ ation record ed. [email or web address] [facility] [address], [place], [address], 10/29/2023 09:35:24 Result Notes None recorded. Problems Name Problem SNOMED Code Status Onset Date Resolution Date Notes Provider Name and Address Organization Details Recorded Time Pain in throat 787200719 Completed Not Available [facility] 3 07:32:24 Feeling stressed 682551430 Completed Not Available [facility] 3 07:32:24 Fluid level behind tympanic membrane Completed Not Available [facility] 3 07:32:24 Lymphaden opathy 79274644 Completed Not Available [facility] 3 07:32:24 Sinusitis 00475220 Completed Not Available [facility] 3 07:32:24 Hypertens demetrius disorder 42582582 Active Not Available [facility] 3 07:32:24 Chronic recurrent sinusitis 444898140 Completed Not Available [facility] 3 07:32:25 Seasonal allergy 211343784 Active Not Available [facility] 3 07:32:25 Cough 09337663 Completed Not Available [facility] 3 07:32:25 Upper respirato ry infection 69497066 Completed Not Available [facility] 3 07:32:25 Hyperlipi demia 43085276 Active Not Available [facility] 3 07:32:25 Posterior rhinorrhe a 30149465 Active Not Available [facility] 3 07:32:26 Obstructi ve sleep apnea syndrome 46776189 Active 2019 Not Available [facility] 3 07:32:26 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 60386052753 9101 Active 2020 Not Available [facility] 3 07:32:24 Hemorrhoi ds 44909163 Active 2021 Not Available [facility] 3 07:32:25 Essential hypertens ion 51920343 Active 2022 Not Available [facility] 3 07:32:25 Acid reflux 548107016 Active 2022 Not Available [facility] 3 07:32:25 Gastroeso phageal reflux disease 485277556 Active 2022 Emma Steele NP [address] [employer], [address], [place], [address] , [facility] 3 12:53:27 Osteoarth ritis 120644094 Active 2022 Dung Hollis MD [address], [address], [place], [address] , [facility] 3 12:20:24 Obesity 756161778 Active 2022 Dung Hollis MD [address], [address], [place], [address] , [facility] 3 12:20:32 Polyarthr opathy 96666636 Active 2023 Dung Hollis MD [address], [address], [place], [address] , [facility] 4 18:02:58 Ankylosin g spondylit is 6533166 Active 2023 Dung Hollis MD [address], [address], [place], [address] , [facility] 4 18:03:43 Notes:Medical History: Depre ssion/Anxiety Rhinitis with postnasal drip Obesity with mod OSAHS, AHI = 21, 06/27/20, on autoCPAP 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 Procedures Surgical History Date Name Laterality Status Provider Name and Address Organization Details Recorded Time 09/21/19 Date of Last Mammogram completed Dung Hollis MD [address] [facility], [facility] [address], [place], [address], [email or web address] 10/28/2023 17:25:22 09/11/19 23 Most Recent Bone Density completed Not Available [facility] 09/12/2022 07:27:42 05/17/20 21 Most Recent Mammogram completed Not Available [facility] 09/12/2022 07:27:42 01/25/20 18 DIRECTOR COST Surgery completed Not Available [facility] 09/13/19 23 07:27:45 07/15/19 10 other completed Not Available [facility] 3 07:27:45 07/15/19 09 other completed Not Available [facility] 3 07:27:45 Tonsillectomy completed Not Available [facility] 09/12/2022 07:27:45 Hysterectomy [facility] 07:27:45 Imaging Results None recorded. Procedure Notes None recorded. Medical Equipment None Reported. Allergies Allergen ID Allergen Name Allergen Category Reaction Reaction Severity Criticality Documentation Date Start Date Code Code System Note Provider Name and Address Organization Details Recorded Time 06104 Anaprox medicatio n rash Not available Not available 09/12/202263864 9 RxNorm Not Available [facility] 3 07:38:18 79070 amlodipin e medicatio n rash severe Not available 09/12/2022 33286 RxNorm Not Available [facility] 3 07:38:18 Medications Name Sig Start Date Stop Date Status Note LastModified by Organization Details LastModified Time cyclobenza kelsey 10 mg tablet TAKE 1 TABLET BY MOUTH THREE TIMES DAILY FOR 14 DAYS NEEDED 05/17 completed Not Available Not Available Not Available amoxicilli n 500 mg capsule TAKE 4 CAPSULES BY MOUTH 1 HOUR BEFORE PROCEDURE 09/16 completed Not Available Not Available Not Available atorvastat in 40 mg tablet TAKE 1 TABLET BY MOUTH DAILY active Not Available Not Available No t Available cefuroxime axetil 250 mg tablet 10/29 completed Not Available Not Available Not Available atorvastat in 20 mg tablet TAKE 1 TABLET BY MOUTH EVERY DAY AT BEDTIME 09/16 completed Not Available Not Available Not Available cetirizine 10 mg tablet TAKE 1 TABLET BY MOUTH EVERY MORNING BEFORE BREAKFAST active Not Available Not Available No t Available azithromyc in 250 mg tablet ZPK. 12/30 completed Not Available Not Available Not Available metoprolol succinate ER 50 mg tablet,ext ended release 24 hr TAKE 1 TABLET DAILY active Not Available Not Available No t Available hydrocodon e 5 mg-acetami nophen 325 mg tablet TAKE 1 TABLET BY MOUTH EVERY 6 HOURS NEEDED FOR PAIN 10/27 completed Not Available Not Available Not Available meloxicam 15 mg tablet TAKE 1 TABLET BY MOUTH EVERY DAY 08/24 completed Not Available Not Available Not Available hydroquino ne 4 % topical cream Apply TO DARK SPOTS ON face TWICE DAILY for TWO MONTHS. 03/11 completed Derm Not Available Not Available Not Available spironolac tone 25 mg-hydroch lorothiazi de 25 mg tablet 12/30 completed Not Available Not Available Not Available phenazopyr idine 200 mg tablet TAKE 1 TABLET BY MOUTH THREE TIMES DAILY FOR 5 DAYS NEEDED 01/14 completed Not Available Not Available Not Available famotidine 40 mg tablet TAKE 1 TABLET BY MOUTH EVERY DAY active Not Available Not Available No t Available prednisone 20 mg tablet 3 po qday x 3 days then 2 po qday x 3 days then 1 po qday x 3 days then 1/2 tab po qday x 3 days then stop active Not Available Not Available No t Available prednisone 5 mg tablet TAKE 1-3 TABLETS BY MOUTH ONCE DAILY FOR ARTHRITIS CONTROL. USE LOWEST DOSE NEEDED AND STOP WHEN BETTER 09/16 completed Not Available Not Available Not Available estradiol 0.1 mg/24 hr semiweekly transderma l patch Apply 1 patch(es) twice a week by transderm . route 10/15 completed Not Available Not Available Not Available alclometas one 0.05 % topical cream PRN 07/18 completed Not Available Not Available Not Available phentermin e 37.5 mg tablet TAKE 1 TABLET BY MOUTH EVERY DAY 04/18 completed Not Available Not Available Not Available amlodipine 5 mg tablet Take 1 tablet every day by oral route for 30 days. active Not Available Not Available No t Available ciprofloxa helena 500 mg tablet TAKE 1 TABLET BY MOUTH EVERY 12 HOURS FOR 5 DAYS DIRECTED 01/14 completed Not Available Not Available Not Available omeprazole 40 mg capsule,de layed release TAKE 1 CAPSULE BY MOUTH DAILY TO PREVENT NSAID SIDE EFFECTS active Not Available Not Available No t Available tramadol 50 mg tablet TAKE 1 TABLET BY MOUTH WITH TYLENOL THREE TIMES DAILY FOR PAIN CONTROL active Not Available Not Available No t Available triamcinol one acetonide 0.1 % topical cream APPLY A THIN LAYER TO THE AFFECTED AREA(S) BY TOPICAL ROUTE 2 TIMES PER DAY active Not Available Not Available No t Available spironolac tone 25 mg tablet Take 1 tablet every day by oral route. 08/04 completed Not Available Not Available Not Available simvastati n 40 mg tablet Take 1 tablet every day by oral route. 2014 active Not Available Not Available Not Avai lable oxycodone- acetaminop hen 5 mg-325 mg tablet TAKE 1 TABLET BY MOUTH EVERY 4-6 HOURS NEEDED 03/11 completed Not Available Not Available Not Available prednisolo ne acetate 1 % eye drops,susp ension SHAKE LQ AND INT 1 GTT IN OD TID 08/12 completed Not Available Not Available Not Available lorazepam 0.5 mg tablet Take 1 po 30 minute prior to procedure . 11/24 completed Not Available Not Available Not Available estradiol 1 mg tablet TAKE 1 TABLET BY MOUTH EVERY DAY 10/02 completed Not Available Not Available Not Available baclofen 10 mg tablet TAKE 1 TABLET BY MOUTH THREE TIMES DAILY 09/16 completed Not Available Not Available Not Available benzonatat e 100 mg capsule TAKE 2 CAPSULES BY MOUTH THREE TIMES DAILY NEEDED 01/02 completed Not Available Not Available Not Available simvastati n 20 mg tablet TAKE 1 TABLET BY MOUTH DAILY active Not Available Not Available No t Available neomycin-p olymyxin-d exameth 3.5 mg/mL-10,0 00 unit/mL-0. 1% eye drops INSTILL 1 DROP INTO AFFECTED EYE(S) BY OPHTHALMI C ROUTE EVERY 3-4 HOURS 01/02 completed Not Available Not Available Not Available clotrimazo le-betamet hasone 1 %-0.05 % topical cream APPLY TO THE AFFECTED AND SURROUNDI NG AREAS OF SKIN BY TOPICAL ROUTE 2 TIMES PER DAY IN THE MORNING AND EVENING FOR 2 WEEKS active Not Available Not Available No t Available lisinopril 10 mg tablet TAKE 1 TABLET BY MOUTH TWICE DAILY active Not Available Not Available No t Available gabapentin 300 mg capsule TAKE 2 CAPSULES BY MOUTH AT BEDTIME 09/16 completed Not Available Not Available Not Available omeprazole 20 mg capsule,de layed release Take 1 capsule every day by oral route for 30 days. active Not Available Not Available No t Available diclofenac sodium 75 mg tablet,del ayed release active Not Available Not Available Not Available montelukas t 10 mg tablet TAKE 1 TABLET DAILY active Not Available Not Available No t Available hydrochlor othiazide 25 mg tablet 07/18 completed Not Available Not Available Not Available mupirocin 2 % topical ointment APPLY A SMALL AMOUNT IN EACH NOSTRIL WITH A EVERY-TIP TWICE DAILY FOR 5 DAYS PRIOR TO SURGERY 10/07 completed Not Available Not Available Not Available furosemide 20 mg tablet TAKE 1 TABLET BY MOUTH EVERY MORNING DIRECTED 01/14 completed Not Available Not Available Not Available estradiol 0.5 mg tablet TAKE 1 TABLET BY MOUTH DAILY active Not Available Not Available No t Available clobetasol 0.05 % topical ointment 07/18 completed Not Available Not Available Not Available Zaditor 0.025 % (0.035 %) eye drops INSTILL 1 DROP INTO AFFECTED EYE(S) BY OPHTHALMI C ROUTE 2 TIMES PER DAY 03/04 completed Not Available Not Available Not Available lorazepam 1 mg tablet TAKE 1 TABLET BY MOUTH 30 MINUTES PRIOR TO MRI. MAY REPEAT DOSE ONCE IF NEEDED. active Not Available Not Available No t Available methylpred nisolone 4 mg tablets in a dose pack FOLLOW PACKAGE DIRECTION S 10/07 completed Not Available Not Available Not Available lisinopril 40 mg tablet TAKE 1 TABLET BY MOUTH DAILY active Not Available Not Available No t Available cefdinir 300 mg capsule 09/16 completed Not Available Not Available Not Available fluticason e propionate 50 mcg/actuat ion nasal spray,susp ension Inhale 2 sprays every day by intranasa l route in the morning for 30 days. active Not Available Not Available No t Available loratadine 10 mg tablet TK 1 T PO QAM 05/07 completed Not Available Not Available Not Available diazepam 5 mg tablet TAKE 1 TABLET BY MOUTH 45 MINUTES PRIOR TO APPOINTME NT. MAY TAKE ANOTHER TABLET 15 MINUTES PRIOR IF NEEDED. 10/07 completed Not Available Not Available Not Available amoxicilli n 875 mg-potassi um clavulanat e 125 mg tablet TK 1 T PO BID active Not Available Not Available No t Available amoxicilli n 500 mg-potassi um clavulanat e 125 mg tablet TAKE 1 TABLET BY MOUTH THREE TIMES DAILY 01/02 completed Not Available Not Available Not Available oxycodone 5 mg tablet 10/07 completed Not Available Not Available Not Available escitalopr am 10 mg tablet Take 1 tablet every day by oral route as directed for 30 days. active Not Available Not Available No t Available cyclobenza kelsey 5 mg tablet TAKE 1 TO 2 TABLETS BY MOUTH EVERY NIGHT 01/02 completed Rheum Not Available Not Available Not Available Boostrix Tdap 2.5 Lf unit-8 mcg-5 Lf/0.5 mL intramuscu lar syringe ADM 0.5ML IM UTD 10/29 completed Not Available Not Available Not Available pregabalin 25 mg capsule active Not Available Not Available Not Available pregabalin 75 mg capsule TAKE 1 CAPSULE BY MOUTH EVERY NIGHT 09/16 completed Not Available Not Available Not Available diclofenac 1 % topical gel APPLY 2 GRAMS TO THE AFFECTED AREA(S) BY TOPICAL ROUTE 4 TIMES PER DAY 07/18 completed Not Available Not Available Not Available Besivance 0.6 % eye drops,susp ension SHAKE LQ AND INT 1 GTT IN OD TID 08/12 completed Not Available Not Available Not Available Prevnar 13 (PF) 0.5 mL intramuscu lar syringe active Not Available Not Available Not Available lotepredno l etabonate 0.5 % eye gel drops INSTILL 1 DROP IN BOTH EYES THREE TIMES DAILY FOR 5 DAYS, THEN TWICE DAILY FOR 5 DAYS 10/07 completed Not Available Not Available Not Available Prolensa 0.07 % eye drops INT 1 GTT IN OD QD 08/12 completed Not Available Not Available Not Available Simponi ARIA 01/14 completed Rheum Not Available Not Available Not Available Fluvirin 45 mcg (15 mcg x 3)/0.5 mL intramuscu lar suspension ADM 0.5ML IM UTD 10/29 completed Not Available Not Available Not Available Xhance 93 mcg/actuat ion breath activated aerosol INSTILL 1 SPRAY INTO EACH NOSTRIL TWICE DAILY active Not Available Not Available No t Available Xhance 10/20 completed Not Available Not Available Not Available Shingrix (PF) 50 mcg/0.5 mL intramuscu lar suspension , kit 12/30 completed Not Available Not Available Not Available ID NOW COVID-19 Test Kit TEST DIRECTED TODAY 04/18 completed Not Available Not Available Not Available COVID-19 test specimen collection TEST DIRECTED 08/24 completed Not Available Not Available Not Available Flowflex COVID-19 Antigen Home Test kit 01/02 completed Not Available Not Available Not Available Vitals Date Recorded Heart rate Respiratory rate Provider N leonor and Address Organization Details Last Updated DateTime 09/16/2024 72 /min 19 /min Paul Jacobs [facility] [address] [facility] [address] [address], [place], [address], [facility] [employer] 09/16/2024 11:21:45 Date Recorded Body height Body mass index (BMI) Body weight Heart rate Oxygen saturation Oxygen saturation in Arterial blood by Pulse oximetry Body temperature Systolic And Diastolic Provider Name and Address Organization Details Last Updated DateTime 170.18 cm 34.3 kg/m2 16473.7 3 g 72 /min 96 % 96 % 98.1 [degF] 122/80 mm[Hg] Kia Jett MA [facility] [employer] 11:12:56 Date Recorded Body mass index (BMI) Body weight Heart rate Respiratory rate Provider Name and Address Organization Details Last Updated DateTime 10/08/2023 35.1 kg/m2 917117.69 g 64 /min 19 /min Paul Jacobs MD [address] [facility], [facility] [address], [place], [address], [facility] [employer] [facility] 10/08/2023 11:07:49 Date Recorded Body height Body temperature Heart rate Oxygen saturation Oxygen saturation in Arterial blood by Pulse oximetry Systolic And Diastolic Provider Name and Address Organization Details Last Updated DateTime 4 170.18 cm 97.7 [degF] 64 /min 97 % 97 % 134/76 mm[Hg] Temi Gutierrez MA [facility] [employer] [facility] 4 10:28:06 Date Recorded Systolic And Diastolic Provider Name and Address Organization Details Last Updated DateTime 10/28/2023 148/82 mm[Hg] Aldo Garcia [address] [facility], [facility] [address], [address], [facility] [employer] 10/28/2023 18:02:13 Date Recorded Body height Body mass index (BMI) Body weight Body temperature Heart rate Oxygen saturation Oxygen saturation in Arterial blood by Pulse oximetry Provider Name and Address Organization Details Last Updated DateTime 4 170.18 cm 34.5 kg/m2 79691.4 2 g 98.1 [degF] 69 /min 97 % 97 % Emily Junior MA [facility] [employer] [facility] 4 17:12:35 Date Recorded Body height Body mass index (BMI) Body weight Body temperature Respiratory rate Heart rate Oxygen saturation Oxygen saturation in Arterial blood by Pulse oximetry Systolic And Diastolic Provider Name and Address Organization Details Last Updated DateTime 4 170.18 cm 34.8 kg/m2 486002. 96 g 97.9 [degF] 20 /min 64 /min 98 % 98 % 142/72 mm[Hg] Marc Lemus [facility] [employer] 4 15:25:28 Date Recorded Body height Body mass index (BMI) Body weight Body temperature Heart rate Respiratory rate Oxygen saturation Oxygen saturation in Arterial blood by Pulse oximetry Pain severity - 0-10 verbal numeric rating [Score] - Reported Systolic And Diastolic Provider Name and Address Organization Details Last Updated DateTime 3 170.18 cm 34.2 kg/m2 28106.5 4 g 96.8 [degF] 63 /min 20 /min 97 % 97 % 4 160/82 mm[Hg] Emma Nick RN [facility] [employer] [facility] 12:07:33 Social History Question Answer Notes LastModified by Organizat ion Details LastModified Time Tobacco Smoking Status Former Smoker quit age 22 Cecilia You rebeca, [facility] [employer] [facility] 01/02/2023 15:50:15 Do You Have An Advance Directive? No Information not available 10/28/2023 Are You Blind Or Do You Have Difficulty Seeing? No Information not available 03/11/2023 What Is Your Level Of Caffeine Consumption? None [id number] Information not available 09/12/2022 How Much Tobacco Do You Chew? None [id number] Information not available 09/12/2022 In The 14 Days Before Symptom Onset, Have You Had Close Contact With A Laboratory-confi rmed COVID-19 While That Case Was Ill? No Information not available 01/02/2023 In The 14 Days Before Symptom Onset, Have You Had Close Contact With A Person Who Is Under Investigation For COVID-19 While That Person Was Ill? No Information not available 01/02/2023 Are You Deaf Or Do You Have Serious Difficulty Hearing? No Information not available 03/11/2023 What Type Of Diet Are You Following? REGULAR [id number] Information not available 09/12/2022 Which Illicit Or Recreational Drugs Have You Used? None Information not available 01/02/2023 What Is The Highest Grade Or Level Of School You Have Completed Or The Highest Degree You Have Received? [id number] [email or web address] Information not available 01/02/2023 Do You Have An Electrostatic Air Filter? No Information not available 01/02/2023 Have There Been Any Changes To Your Family Or Social Situation? No [email or web address] Information not available 01/02/2023 When Did You Quit Smoking? 14+yearssincelastc igarette Information not available 01/02/2023 Do You Have A Humidifier? Yes Information not available 01/02/2023 Do You Use Insect Repellent Routinely? Yes [email or web address] Information not available 01/02/2023 Where Do You Live? [facility] [email or web address] Information not available 01/02/2023 Do You Have Moisture Problems In Your Home? No Information not available 01/02/2023 What Was The Date Of Your Most Recent Tobacco Screening? 09/16/2024 [email or web address] Information not available 09/16/2024 How Many Children Do You Have? 2 Information not available 01/02/2023 Have You Ever Been Counseled For Unhealthy Alcohol Use? No Information not available 01/02/2023 Do You Have Any Pets? Yes Information not available 01/02/2023 What Is Your Relationship Status? [id number] Information not available 09/12/2022 Do You Use Your Seat Belt Or Car Seat Routinely? Yes Information not available 01/02/2023 Do You Have Smoke And Carbon Monoxide Detectors In Your Home? Yes Information not available 01/02/2023 At What Age Did You Start Smoking Tobacco? 13 Information not available 01/02/2023 Are You Passively Exposed To Smoke? No Information not available 01/02/2023 How Much Tobacco Do You Smoke? 1 PPW Information not available 10/28/2023 Do You Use Sunscreen Routinely? Yes [email or web address] Information not available 01/02/2023 Has Tobacco Cessation Counseling Been Provided? No Information not available 01/02/2023 How Many Years Have You Smoked Tobacco? 9 Information not available 01/02/2023 Have You Recently Traveled Abroad? No Information not available 01/02/2023 Do You Have Difficulty Walking Or Climbing Stairs? No Information not available 03/11/2023 Do You Have Any Dietary Restrictions? No Information not available 01/02/2023 Sex: Female Functional Status Question Answer Note LastModified by Organizat ion Details LastModified Time Do you use any illicit or recreational drugs? No Information not available 01/02/2023 Do you or have you ever used any other forms of tobacco or nicotine? No Information not available 01/02/2023 What is your level of alcohol consumption? Moderate [id number] Information not available 09/12/2022 Do you or have you ever used smokeless tobacco? Never used smokeless tobacco [id number] Information not available 09/12/2022 Have you been exposed to chemicals or toxins? Not that aware of [email or web address] Information not available 10/08/2023 Do you have transportation difficulties? No Information not available 01/02/2023 Do you have difficulty doing errands alone? No Information not available 01/02/2023 Are you able to care for yourself independently? Yes Information not available 01/02/2023 What is your occupation? RETIRED Information not available 01/02/2023 Do you have difficulty dressing, bathing, grooming, or toileting? No Information not available 01/02/2023 Do you or have you ever used e-cigarettes or vape? Never used electronic cigarettes Information not available 01/02/2023 What is your exercise level? Occasional [id number] Information not available 09/12/2022 Mental Status Question Answer Note LastModified by Organizat ion Details LastModified Time Do you feel stressed (tense, restless, nervous, or anxious, or unable to sleep at night)? [id number] Information not available 03/11/2023 Do you have difficulty concentrating, remembering or making decisions? No Information no t available 03/11/2023 Family History Relationship Description Onset Age of this Age Resolved Age Notes LastModified by Organization Details LastModified Time Mother Atrial fibrillation Not available 0 09/16/2024 10:53:23 Mother Cerebrovascu lar accident [email or web address] Not available 0 09/16/2024 10:53:23 Mother Chronic renal failure kidney stent [email or web address] Not available 09/16/2024 10:53:23 Mother Patient paced [email or web address] Not available 11/2024 10:53:23 Mother Obstructive sleep apnea syndrome [email or web address] Not available 11/2024 10:53:23 Mother Hypertensive disorder [id number] Not available 09/12/2022 07:27:46 Mother Diabetes mellitus [id number] Not available 09/12/2022 07:27:46 Maternal Grandmother Hypertensive disorder [id number] Not available 09/12/2022 07:27:47 Maternal Grandmother Malignant tumor of breast [email or web address] Not available 11/2024 10:53:23 Maternal Grandmother Alzheimer's disease [email or web address] Not available 11/2024 10:53:23 Father Cerebrovascu lar accident Not available 0 09/16/2024 10:53:23 Father Degenerative disorder of macula [email or web address] Not available 11/2024 10:53:23 Maternal Aunt Malignant tumor of breast Not available 11/2024 10:53:23 Paternal Grandmother Malignant tumor of breast [email or web address] Not available 11/2024 10:53:23 Sister Obstructive sleep apnea syndrome [email or web address] Not available 11/2024 10:53:23 Brother Obstructive sleep apnea syndrome [email or web address] Not available 11/2024 10:53:23 Son Obstructive sleep apnea syndrome Not available 11/2024 10:53:23 Notes:mother Medical History Condition Response CHEST XRAY N NERVE DISEASE N BLINDNESS N POLIO N LUNG DISEASE/DISORDER N RADIATION / CHEMOTHERAPY N COPD N BLOOD DISEASES N EAR OR HEARING PROBLEMS N BOWEL PROBLEMS N DEPRESSION (INCLUDING POST ) Y FEMALE PROBLEMS / INFECTIONS Y STROKE/TIA N CHEST CT N ULCERS N RENAL INSUFFICIENCY N BENIGN PROSTATIC HYPERPLASIA N TB SKIN TEST N OBESITY N GERD/NAUSEA N EXCESSIVE PERSPIRATION N ANEURYSM N URINARY/BLADDER/KIDNEY PROBLEMS Y CORONARY ARTERY DISEASE (CAD) N USE OF BLOOD THINNERS N SKIN PROBLEMS N EMPHYSEMA N SHORTNESS OF BREATH N GASTROINTESTINAL DISORDER N PARATHYROID DISEASE N PERIPHERAL VASCULAR DISEASE N GASTROINTESTINAL BLEEDING N BLOOD CLOTS N ASTHMA Y CONCUSSION OR SPINAL TRAUMA N VARICOSITIES N GI PROBLEMS N CHF N AIDS/HIV N HYPERTENSION Y TOURETTE'S N ANXIETY DISORDER Y BLOOD TRANSFUSION N ANEMIA/BLOOD DISORDER Y BRONCHITIS Y TUBERCULOSIS N GLAUCOMA N SLEEP APNEA Y ALLERGIES/HAYFEVER Y INFECTIOUS DISEASE N HEART ARRHYTHMIA N PROSTATE N INSOMNIA N HIGH CHOLESTEROL / HYPERLIPIDEMIA Y EYE PROBLEMS Y EDEMA N CAROTID BLOCKAGE N BACK / NECK PROBLEMS N HAVE YOU BEEN HOSPITALIZED OR SEEN IN [facility] ER IN THE PAST YEAR ? N ATHEROSCLEROSIS N BREAST PROBLEMS N HERNIATED DISC N DIALYSIS N FIBROMYALGIA N OSTEOPOROSIS N ARTHRITIS N NO SIGNIFICANT PAST MEDICAL HISTORY N DIABETES, TYPE N SEASONAL ALLERGIES Y HEARTBURN / REFLUX N PLEURISY N ADD/ADHD N Bronchoscopy N HEPATITIS / LIVER DISEASE N PULMONARY DISEASE N GOUT N SLEEP DISORDER Y ALZHEIMER'S DISEASE N FATIGUE N DEMENTIA N HERPES N RETINOPATHY N HEADACHES/MIGRAINES N SEIZURES/EPILEPSY N SLEEP STUDY Y VASCULAR DISEASE N DIZZINESS N HEAD TRAUMA OR INJURY N HEART DISEASE/HEART PROBLEMS N KIDNEY DISEASE Y MULTIPLE SCLEROSIS N PULMONARY FUNCTION TEST N CANCER: SPECIFY N CARDIAC ARRHYTHMIA N ANESTHESIA COMPLICATIONS N PNEUMONIA N ATRIAL FIBRILLATION N PULMONARY EMBOLISM N AUTOIMMUNE DISEASE N Gynecological History Statement/Question Response Abnormal Pap N Date of Last Mammogram 09/20/2022 STIs/STDs N HPV Vaccine N Date of Last Pap Current Control Method Hysterectom y Most Recent Mammogram 05/17/2021 Age at Menarche 10 Date of Last Mammogram 09/20/2022 Date of Last Colonoscopy Most Recent Bone Density 09/11/2022 Date of Last Pap Smear N Obstetrics History GPAL:G 2 P 2 0 0 2 Type Value Full Term 2 Living 2 Total 2 Immunizations Vaccine Type Date Status Note Provider Nam e and Address Organization Details Recorded Time COVID-19, mRNA, LNP-S, PF, 100 mcg/0.5mL dose or 50 mcg/0.25mL dose 1 completed Not Available [facility] 09/12/2022 07:38:11 COVID-19, mRNA, LNP-S, PF, 100 mcg/0.5mL dose or 50 mcg/0.25mL dose 1 completed Not Available [facility] 09/12/2022 07:38:11 Influenza, split virus, quadrivalent, preservative 0 completed Not Available [facility] 09/12/2022 07:38:11 influenza, unspecified formulation 7 completed Not Available [facility] 09/12/2022 07:38:11 Tdap 6 completed Not Available [facility] 09/12/2022 07:38:11 influenza, unspecified formulation 6 completed Not Available [facility] 09/12/2022 07:38:11 Influenza, split virus, trivalent, preservative 5 completed Not Available [facility] 09/12/2022 07:38:11 zoster live 3 completed Not Available [facility] 09/12/2022 07:38:11 Influenza, high-dose, quadrivalent, PF 0 completed Not Available [facility] 09/12/2022 07:38:11 Past Encounters Encounter ID Performer Location Encounter Start Date Encounter Closed Date Diagnosis/Indication Diagnosis SNOMED-CT Code Diagnosis ICD10 Code Diagnosis Note [id number] [facility] [address] [place] [address] 10/20/2020 00:00:00 10/20/2020 10:52:37 [id number] [facility] [place] [address] [place] [address] 11/17/2020 00:00:00 11/17/2020 13:42:14 [id number] Corrie Omer MD [facility] [address] [place] [address] 01/17/2021 00:00:00 01/17/2021 19:57:16 [id number] [facility] [place] [address] [place] [address] 02/28/2021 00:00:00 02/28/2021 12:43:20 [id number] [facility] IGRATION_ DEFAULT_1 _1 , 05/17/2021 00:00:00 05/17/2021 09:39:39 [id number] S_Histor ic_Gateway [facility] Pulmonolo gy [place] [address] [place] [address] 08/24/2021 00:00:00 08/24/2021 11:31:23 [id number] Corrie Omer MD [facility] [address] [place] [address] 11/14/2021 00:00:00 11/14/2021 11:01:09 [id number] [facility] ic_Gateway [place] [address] [place] [address] 04/18/2022 00:00:00 04/18/2022 10:30:57 [id number] Corrie Omer MD [place] [address] [place] [address] 06/05/2022 00:00:00 06/05/2022 10:34:47 [id number] Dung Hollis MD [place] [address] [place] [address] 07/18/2022 00:00:00 07/18/2022 11:17:19 [id number] Theresa Amato [facility] Pulmonolo gy [place] [address] [place] [address] 08/08/2022 00:00:00 08/08/2022 11:04:32 [id number] Emma Steele NP [place] [place] [address] 01/02/2023 15:48:20 01/02/2023 16:38:50 Hyperlipidemia 39662901 E78.5 Atorvastat in 20 mg po nightly. Obstructiv e sleep apnea of adult 7920359626 103 G47.33 CPAP. Seeing Theresa Deluca. Seasonal allergy 9425803 04 J30.2 Stable. Ankylosing spondylitis 3061275 M45.9 Acid reflux 857885901 K2 1.9 Postmenopausal state 764 04334 Z78.0 Dexa normal 08/2022. Essential hypertension 39955323 I10 Lisinopril 10 mg po daily. Anemia screening 5834112 07 Z13.0 Thyroid di sorder screening 274497475 Z13.29 Diabetes m ellitus screening 413235177 Z13.1 [id number] Dung Hollis MD [address] [address] 03/11/2023 11:48:51 03/11/2023 12:18:24 Pain in right thumb 5202328127 190232 M79.644 Ankylosing spondylitis 6486189 M45.9 Osteoarthritis 419578234 M19.90 Obesity 650724546 E66.9 [id number] Paul Jacobs MD [address] [address] 10/08/2023 10:13:01 10/09/2023 08:07:23 Obstructive sleep apnea syndrome 18541901 G47.33 [id number] Dung Hollis MD [address] [address] 10/28/2023 17:05:26 10/28/2023 17:56:52 Bilateral chronic pain of feet 6406452239 2788655 M79.672 Paresthesia of foot 3090 32893 R20.2 Swelling o f bilateral lower limbs 742156935 M79.89 Pain of ri ght hip joint 6797081276 31322 M25.551 Polyarthropathy 50087640 M13.0 Chronic neck pain 614770 1575 107 M54.2 Chronic back pain 960432 002 G89.29 Ankylosing spondylitis 3207512 M45.9 Obesity 900445161 E66.9 [id number] Dung Hollis MD [address] [address] 11/04/2023 15:12:27 11/04/2023 15:42:07 Dysuria 06199161 R30.0 Urinary tr act infectious disease 22491480 N39.0 [id number] Paul Jacobs MD [address] [address] 09/16/2024 10:52:17 09/16/2024 16:57:45 Obstructive sleep apnea syndrome 07501961 G47.33 Health Concerns Section Related Observation LastModified by Organization Detai ls LastModified Time None Recorded Concern Status LastModified by Organization Details LastModified Time None Recorded Advance Directives Directive N: Payers Insurance Date Sequence Insurance Name Policy Number Policy Kang Covered Member ID Kang Member ID Guarantor Name 09/18/2024 1 [place] Shirley Xiong [id number] Shirley Xiong 09/18/2024 2 AARP (MEDICARE SUPPLEMENT) Shirley Xiong [id number] Shirley Xiong 10/08/2023 1 [facility] [id number] Arvin Xiong [id number] Shirley Xiong Notes Date Note Type Note Provider Name and Address Organization Details Recorded Time 03/11/2023 text/html ACV: C/o Rt thumb base area pain for last 8 days. Pt denies any recent fall/trauma over it. Pt has chronic Ankylosing spondylitis and she is f/u with Rheumat at [facility] for it. Dung Hollis MD [address] [place] [address], [phone], [facility] [employer] [facility] 03/11/2023 12:20:54 10/08/2023 text/html Primary care/Referring provider: Dung Hollis MD At home since 08/08/22, the patient uses a ResMed AirSense 10 autoset unit with heated humidification. The patient does not need the ramp to start low and go up slowly on the pressure anymore. There is some xerostomia in a.m. There is no hose/mask condensation with water. The patient wears a ResMed small AirFit N30i nasal mask without chin strap. There is no claustrophobia, no nostril/nose bridge irritation, no facial rash, no facial numbness, no nosebleeding. The patient feels more refreshed upon waking and daytime alertness is improved. Energy levels are sustained until early afternoon, around 2 pm. At home, the patient sleeps from 11 pm to 6:30 am and wakes up without an alarm. Snoring: moderate, since . Snorting: no Choking: no Coughing: no Gasping: no Gagging: no Sighing: no Witnessed apnea: yes Twitching or jerking of leg(s), arm(s), body, head: no Teeth grinding: no Teeth clenching: no Sleeptalking: no Sleepwalking: no Sleep crying: no Bedwetting: no Tongue/lip/gum/cheek biting: no Sleeping with open mouth: yes Sleep paralysis: no Hypnagogic hallucinations: no Hypnopompic hallucinations: no Vivid dreams: no Difficulty with sleep onset: yes Difficulty with sleep maintenance: yes Sleep interruptions: nocturia x 2 Patient wakes up with: fatigue, xerostomia, cognitive impairment, dexterity impairment Daytime cataplexy: no Morning hypersomnolence: yes Afternoon hypersomnolence: yes Caffeine sources in diet: coffee 1 cup per day, chocolate 1 candy bar per week Associated medical and psychiatric conditions: Congestive heart failure: no Coronary artery disease: no Myocardial infarction: no Hypertension: yes Stroke: no Bronchial asthma: no Chronic obstructive pulmonary disease: no Depression: yes Bipolar disorder: no Anxiety: yes Panic disorder: no Posttraumatic stress disorder: no Attention deficit and hyperactivity disorder: no Obsessive Compulsive disorder: no Schizophrenia: no Schizoaffective disorder: no Personality disorder: no Chronic analgesic use: no Chronic sedative/hypnotic use: no EPWORTH SLEEPINESS SCALE (ESS) CHANCE OF DOZING SCORE 0 = would never doze 1 = slight chance of dozing 2 = moderate chance of dozing 3 = high chance of dozing SITUATION AND CHANCE OF DOZING Sitting and reading - 3 Watching television - 3 Sitting inactive in a public place (e.g. a theater or meeting) - 1 As a passenger in a car for an hour without a break - 2 Lying down to rest in the afternoon when circumstances permit - 3 Sitting and talking to someone - 0 Sitting quietly after lunch without alcohol - 2 In a car, while stopped for a few minutes in the traffic - 0 TOTAL SCORE 14 Subjectively, patient has a moderate chance of dozing. Paul Jacobs MD [address] [place] [address], [place] [address], [place], [address], [place] [facility] [place] [employer] 10/08/2023 11:18:58 10/28/2023 text/html ACV: C/o b/l feet area pain for last several weeks. Pt is f/u with Vac Press [employer], but has not seen them for this. Denies any recent trauma. C/o b/l lower leg and feet swelling at the end of day and wants to try water pill for it. Denies any chest pain/sob/palpitations. C/o Rt hip area pain for last 3 weeks. No radiation/incontinence . Pt is f/u with Spine surgeon at [place] for her chronic neck pain. She had cervical spinal fusion in September. Pt is f/u with Rheumat for her chronic multiple joints pain and is on infusion by them. Dung Hollis MD [address], [facility] [address], [place], [address], [email or web address] [facility] 10/28/2023 18:04:56 11/04/2023 text/html ACV: C/o urinary urgency and frequency for last few days. Denies any other symptoms. Dung Hollis MD [address], [address], [place], [address], [employer] 11/04/2023 15:41:23 09/16/2024 text/html Primary care/Referring provider: Dung Hollis MD At home since 10/08/23, the patient uses a ResMed AirSense 10 autoset unit with heated humidification. The patient does not need the ramp to start low and go up slowly on the pressure anymore. There is some xerostomia in a.m. There is no hose/mask condensation with water.The patient wears a ResMed small AirFit N30i nasal mask without chin strap. There is no claustrophobia, no nostril/nose bridge irritation, no facial rash, no facial numbness, no nosebleeding. The patient feels more refreshed upon waking and daytime alertness is improved. Energy levels are sustained until early afternoon, around 2 pm. At home, the patient sleeps from 11 pm to 6:30 am and wakes up without an alarm. Snoring: moderate, since .Snorting: noChoking: noCoughing: noGasping: noGagging: noSighing: noWitnessed apnea: yesTwitching or jerking of leg(s), arm(s), body, head: noTeeth grinding: noTeeth clenching: noSleeptalking: noSleepwalking: noSleep crying: noBedwetting: noTongue/lip/gum/cheek biting: noSleeping with open mouth: yesSleep paralysis: noHypnagogic hallucinations: noHypnopompic hallucinations: noVivid dreams: noDifficulty with sleep onset: yesDifficulty with sleep maintenance: yesSleep interruptions: nocturia x 2Patient wakes up with: fatigue, xerostomia, cognitive impairment, dexterity impairmentDaytime cataplexy: noMorning hypersomnolence: yesAfternoon hypersomnolence: yesCaffeine sources in diet: coffee 1 cup per day, chocolate 1 candy bar per week Associated medical and psychiatric conditions:Congestive heart failure: noCoronary artery disease: noMyocardial infarction: noHypertension: yesStroke: noBronchial asthma: noChronic obstructive pulmonary disease: noDepression: yesBipolar disorder: noAnxiety: yesPanic disorder: noPosttraumatic stress disorder: noAttention deficit and hyperactivity disorder: noObsessive Compulsive disorder: noSchizophrenia: noSchizoaffective disorder: noPersonality disorder: noChronic analgesic use: noChronic sedative/hypnotic use: no EPWORTH SLEEPINESS SCALE (ESS) CHANCE OF DOZING SCORE0 = would never doze1 = slight chance of dozing2 = moderate chance of dozing3 = high chance of dozing SITUATION AND CHANCE OF DOZINGSitting and reading - 2Watching television - 2Sitting inactive in a public place (e.g. a theater or meeting) - 1As a passenger in a car for an hour without a break - 2Lying down to rest in the afternoon when circumstances permit - 2Sitting and talking to someone - 0Sitting quietly after lunch without alcohol - 1In a car, while stopped for a few minutes in the traffic - 0TOTAL SCORE 10Subjectively, patient has a moderate chance of dozing. Paul Jacobs MD [address] [place] [address], [phone], [facility] [employer] [facility] [employer] 09/16/2024 11:36:54 OBGyn Episode No OBEpisode recorded.
--- OUTSIDE RECORDS SUMMARY | 2025-02-08 00:56 | XMS_ITS | Clinical Summary ---
Author Organization [facility] Address [address] [place] [address] Care Team Providers Care Repairer Hairspring Name Role Phone Arlin Reyes JOHN-PLASTIC BOAT PATCHER Primary Care Provider + Source Comments [facility],non-owned Affiliates and Associated Physician Practices is amultiple site organization consisting of ambulatory clinics and hospital sitesin [place], [place], [place] and [place]. This disclosure is being madepursuant to the Care Everywhere program and may not contain all information available regarding this patient. 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 Gender Identity Not on file Sexual Orientation Not on file Plan of Treatment Health Maintenance Due Date Last Done Comments BONE DENSITY TESTING 1955 COLOGUARD (AGES 45-75) - COLON CA SCREENING 1953 COLON MONITORING 1953 COLONOSCOPY - COLON CA SCREENING 1953 CT COLONOGRAPHY - COLON CA SCREENING 1955 Colorectal Cancer Screening 1955 FIT - COLON CA SCREENING 1953 FLEX SIG - COLON CA SCREENING 1953 LIPID TESTING 1955 MAMMOGRAM 1953 HEPATITIS C SCREENING 02/09/1971 DTAP/TDAP/TD VACCINES (1 - Tdap) 02/14/1972 PNEUMOCOCCAL VACCINE 50+ (1 of 1 - PCV) 2003 ZOSTER VACCINE (1 of 2) 2003 COVID-19 VACCINE (4 - 2023- season) 2024 04/10/2021, 10/07/2020, 09/15/2020 DEPRESSION SCREENING 07/15/2024 INFLUENZA VACCINE (#1) 2025 0, 04/24/2017, 04/23/2017, Additional history exists Respiratory Syncytial Virus (RSV) Vaccine Pt: or over 60 yrs (1 - 1-dose 75+ series) 02/14/2028 HEPATITIS B VACCINE Aged Out No longe r eligible based on patient's age to complete this topic HIB VACCINE Aged Out No longer eligi ble based on patient's age to complete this topic HPV VACCINE Aged Out No longer eligi ble based on patient's age to complete this topic MENINGOCOCCAL (Group B) VACCINE SHARED DECISION-MAKING Aged Out No longer eligible based on patient's age to complete this topic MENINGOCOCCAL GROUPS A/C/Y/W VACCINE Aged Out No longer eligible based on patient's age to complete this topic Insurance [facility] Care Teams Repairer Hairspring Relationship Specialty Start Date End Date Arlin Reyes APRN-ARMEN [address] [place] [address] [address] [place] [address] PCP - General Nurse Practitioner 04/18/21
--- OUTSIDE RECORDS SUMMARY | 2025-02-08 00:56 | XMS_ITS | Encounter Summary ---
Author Organization [facility] Address [address] [place] [address] Phone Care Team Providers Care Supreme Court Justice Name Role Phone Arlin Reyes ALMOND BLANCHER Primary Care Provider [phone] Emma Steele ALMOND BLANCHER Primary Care Provider + Nicole Love MD Primary Care Provi maryam Encounter Details Date Type Department Care Team (Late st Contact Info) Description 04/02/2018 Telephone [facility] Cardiology [address] [facility] Advanced Medicine [address]th [place] [address] [place] [address] Matilda Baca MD [address] [facility] [address] [place], [place] [id number] Social History Tobacco Use Types Packs/Day Years Used Date Smoking Tobacco: Former Cigarettes 0.3 7 1 969 - 1976 Smokeless Tobacco: Never Alcohol Use Standard Drinks/Week Comments Yes 5 (1 standard drink = 0.6 oz pure alcohol) drinks one alcoholic beverage a day Comments No Sex and Gender Information Value Date Recorded Sex Assigned at Not on file Legal Sex Female 3:36 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
--- OUTSIDE RECORDS SUMMARY | 2025-02-08 00:56 | XMS_ITS | Encounter Summary ---
Author Organization [facility] Address [address] [place] [address] Phone Care Team Providers Care Commercial Construction Project Manager Name Role Phone Arlin Reyes COFFEE TASTER Primary Care Provider [phone] Emma Steele COFFEE TASTER Primary Care Provider + Nicole Love MD Primary Care Provi maryam Encounter Details Date Type Department Care Team (Late st Contact Info) Description 06/16/2018 Telephone [facility] Cardiology [address] [facility] Advanced Medicine 8th [place] [address] [place] [address] Wendy Ibanez, MPH Social History Tobacco Use Types Packs/Day Years Used Date Smoking Tobacco: Former Cigarettes 0.3 7 1 969 - 1976 Smokeless Tobacco: Never Alcohol Use Standard Drinks/Week Comments Yes 5 (1 standard drink = 0.6 oz pure alcohol) drinks one alcoholic beverage a day Comments No Sex and Gender Information Value Date Recorded Sex Assigned at Not on file Legal Sex Female 3:36 AM FUR DRY CLEANER HAND Gender Identity Not on file Sexual Orientation Not on file documented as of this encounter Plan of Treatment Not on file documented as of this encounter Visit Diagnoses Not on filedocumented in this encounter Care Teams Commercial Construction Project Manager Relationship Specialty Start Date End Date Arlin Reyes NP PCP - General Nurse Practitioner 01/24/18 05/30/23 Emma Steele NP PCP - General Nurse Practitioner 05/31/23 12/24/23 Nicole Love MD [facility] [address] [place] [address] PCP - General Family Medicine 12/25/23 documented as of this encounter
--- OUTSIDE RECORDS SUMMARY | 2025-02-08 00:56 | XMS_ITS | Referral Summary ---
Author Organization [facility] Address [address] [place] [address] Care Team Providers Care Rubbish Collection Supervisor Name Role Phone Nicole Love MD Primary Care Provi maryam Encounters Date Type Department Care Team Description 01/07/2025 10:30 AM CDT Office Visit [facility] Neurology [address] [place] [phone] Lan Dunaway Si, MD Polyneuropathy (Primary Dx) 01/05/2025 10:15 AM CDT - 01/05/2025 11:59 PM CDT Hospital Encounter [facility] ([facility]) [address] [place] [id number] Discharge Disposition: Discharge to home or self care 01/05/2025 10:15 AM CDT - 01/05/2025 11:59 PM CDT Hospital Encounter [facility] ([facility]) [address] [place] [id number] Discharge Disposition: Discharge to home or self care 01/05/2025 9:40 AM CDT Office Visit [facility] [address] [facility] 6th [place] [address] [place] [phone] Javier Jennings MD Right wrist pain 12/28/2024 10:00 AM CDT Office Visit [facility] Family Medicine [address] [phone] Shruthi Syed PA Dysfunction of both eustachian tubes (Primary Dx); Class 1 obesity due to excess calories with serious comorbidity and body mass index (BMI) of 34.0 to 34.9 in adult 11/11/2024 Results Follow-Up [facility] [address] [phone] Shruthi Syed PA XR Hand Right 3+ Vw 11/10/2024 Results Follow-Up [facility] [address] [phone] Shruthi Syed PA XR Hand Left 3+ Vw from Last 3 Months Allergies Active Allergy Reactions Criticality Noted Date Comments Amlodipine Swelling,Rash Medium 01/24/2018 Naproxen Sodium Rash Medium Diclofenac Rash Medium 12/28/2024 Medications cholecalciferol, vitamin D3, 1,000 unit tablet,chewableInd ications:Vitamin D Deficiency Take 1 tablet/chew tab by mouth gill box tender before breakfast Active multivitamin capsuleIndications :Vitamin Deficiency Prevention Take 1 capsule by mouth gill box tender before breakfast Active golimumab (Simponi ARIA) 12.5 mg/mL solutionIndication s:Ankylosing Spondylitis Infuse 16 mL (200 mg total) into a venous catheter Every two months - Last infusion 12/202305/17/20 21 Active cyanocobalamin/fol ic acid (vitamin Y87-ubfpx acid) 500-400 mcg tabletIndications: Vitamin Deficiency Prevention Take 1 tablet by mouth gill box tender before breakfast Active estradioL (ESTRACE) 0.5 mg tablet Take 1 tablet (0.5 mg total) by mouth daily Active predniSONE 5 mg tablet,delayed release (DR/EC) Take by mouth Active loteprednol (LOTEMAX) 0.5 % ophthalmic suspension INSTILL 1 DROP INTO EACH EYE THREE TIMES DAILY FOR 5 DAYS THEN 1 INTO EACH EYE TWICE DAILY FOR 5 DAYS 06/23/20 24 Active cefdinir (OMNICEF) 300 mg capsuleIndications :Acute non-recurrent ethmoidal sinusitis Take 1 capsule (300 mg total) by mouth 2 (two) times a day 20 capsule 06/26/20 24 Active lisinopriL (PRINIVIL,ZESTRIL) 10 mg tabletIndications: hypertension Take 1 tablet (10 mg total) by mouth 2 (two) times a day 180 tablet 1 07/16/19 25 Active pregabalin (LYRICA) 25 mg capsule Take 1 capsule (25 mg total) by mouth 2 (two) times a day 180 capsule 1 07/23/19 25 Active dicyclomine (BENTYL) 10 mg capsule TAKE 1 CAPSULE BY MOUTH THREE TIMES DAILY NEEDED FOR ABDOMINAL PAIN 10/31/19 25 Active ondansetron ODT (ZOFRAN-ODT) 4 mg disintegrating tablet DISSOLVE 1 TABLET ON THE TONGUE EVERY 8 HOURS NEEDED FOR NAUSEA OR VOMITING 10/31/19 25 Active atorvastatin (LIPITOR) 40 mg tablet TAKE 1 TABLET NIGHTLY 100 tablet 1 12/22/19 25 Active metoprolol XL (TOPROL-XL) 50 mg extended release tablet TAKE 1 TABLET EVERY MORNING 100 tablet 1 12/22/19 25 Active montelukast (SINGULAIR) 10 mg tablet TAKE 1 TABLET NIGHTLY 90 tablet 3 12/23/19 25 Active famotidine (PEPCID) 40 mg tablet TAKE 1 TABLET EARLY IN THE MORNING BEFORE BREAKFAST 100 tablet 1 12/22/19 25 Active Additional Information Patient taking differently: 40 mg oral 2 times daily, Reported on 01/07/2025 cetirizine (ZyrTEC) 10 mg tablet TAKE 1 TABLET BY MOUTH EVERY MORNING BEFORE BREAKFAST 90 tablet 1 12/22/19 25 Active vitamin E 400 unit capsule Take 1 capsule (400 Units total) by mouth daily 07/15/19 25 Active prednisoLONE acetate (PRED FORTE) 1 % ophthalmic suspension 11/20/19 25 Active Active Problems Problem Noted Date Diagnosed Date Dysfunction of both eustachian tubes 12/28/2024 Lymphadenopathy 05/29/2024 Encounter for Medicare annual wellness exam 02/13 Overview (10/09/2024): Reviewed eating a healthy diet and activity to their level Reviewed POA/Living will Health Maintenance: Last mammogram: 05/07 Last DEXA: at [facility], will request Last colon cancer screening- colonoscopy in 2013-interested in cologuard. Will order in June Tdap: up to date Last pneumonia: up to date Last Shingrix: up to date Last Flu: up to date Last COVID: up to date Test results: if you have not received communication about test results within 7 days of the test being performed, please contact the office. I strongly encourage myChart sign ups. It can facilitate communication flow. Please contact the office for instructions on signing up. Assessment & Plan (03/04/2024 10:41 AM CDT): Reviewed eating a healthy diet and activity to their level Reviewed POA/Living will Health Maintenance: Last mammogram: At [facility]- will request Last DEXA: at [facility], will request Last colon cancer screening- colonoscopy in 2013-interested in cologuard. Will order in June Tdap: up to date Last pneumonia: up to date Last Shingrix: up to date Last Flu: up to date Last COVID: up to date Test results: if you have not received communication about test results within 7 days of the test being performed, please contact the office. I strongly encourage myChart sign ups. It can facilitate communication flow. Please contact the office for instructions on signing up. Lumbar spondylosis 02/25/2024 Assessment & Plan (03/04/2024 10:46 AM CDT): Chronic, persistent Managed by pain management Symptoms are fair today Continue supportive care Assessment & Plan (02/25/2024 5:01 PM CDT): XR and CT ordered for Ls. Has done a fair bit of PT with limited success. Her thigh pain may be referred from the facets Adjustment disorder with mixed anxiety and depre ssed mood 12/25/2023 Assessment & Plan (03/04/2024 11:43 AM CDT): Chronic, uncontrolled We discussed medication-she has not had a good experience in the past Reviewed options, but she would like to monitor for now We discussed Cymbalta. It may help both with her pain, neuropathy, and mood. I have given her a handout on it. She has declined it for now, but I am hopeful she will consider that medication Update me if mood worsens or changes Reviewed healthy habits for her mood Assessment & Plan (12/25/2023 10:29 AM CDT): Patient reiterated no suicidal thoughts at this time; we discussed medication- she does want to hold off. encouraged healthy diet and exercise encouraged patient to see a counselor use support structures you have in place consider meditation-look at Calm johan try to work on healthy sleep habits If mood worsens or changes, please contact the office Contact 911 and go to the ER if becomes suicidal Sacroiliac joint pain 11/19/2023 Overview (02/25/2024): Right SIJI 11/19/23 - helped buttock pain - XR Report Mark Hip 10/28/23 - Mild OA mark hip. Sig spondylosis Ls. Assessment & Plan (03/04/2024 10:46 AM CDT): Chronic, persistent Managed by pain management Continue current regimen Assessment & Plan (02/25/2024 5:01 PM CDT): Will monitor. Repeat SIJI prn Assessment & Plan (11/19/2023 8:44 AM CDT): R HARRY today. Currently doing chiropractic treatment with some benefit. Reviewed hip imaging. She does have some changes in the Ls but does not really note TTP over the facets or pain with extension. Did discuss possibly referred from facets however. If SIJI does not help would get formal Ls imaging and consider treatment here. Chronic back pain 10/28/2023 Chronic pain of both feet 10/28/2023 S/P cervical spinal fusion 09/09/2023 Overview (02/24/2024): DANIAL - 07/2023 - short term relief Surgery 09/09/23 - Dr. Guzman - notes significant improvement. - MRI 07/2023 FINDINGS: There is trace retrolisthesis C4-C5 and C5-C6. Endplate degenerative signal changes surrounding the intervertebral disc spaces at C2-C3, C3-C4, and C4-C5. No acute fracture is identified. There is mild arthropathy at the craniocervical junction. The visualized portions of the skull base and the posterior fossa are normal. The spinal cord demonstrates normal signal intensity on all sequences. There is diffuse intervertebral disc desiccation. Intervertebral disc height loss C3-C4, C4-C5, and C5-C6. No soft tissue abnormality is identified. Normal signal voids are present in the vertebral arteries. LMA device noted within the airway C2-C3: The disk is normal in configuration. There is mild left facet arthropathy. There is no uncovertebral joint disease. There is no neuroforaminal stenosis. There is no spinal canal stenosis. C3-C4: The disk is normal in configuration. There is no facet arthropathy. There is mild bilateral uncovertebral joint disease. There is mild bilateral neuroforaminal stenosis. There is no spinal canal stenosis. C4-C5: Central disc protrusion which flattens the ventral aspect of the spinal cord. There is no facet arthropathy. There is mild bilateral uncovertebral joint disease. There is mild left neuroforaminal stenosis. There is moderate spinal canal stenosis. C5-C6: Disc bulge eccentric to the left causing effacement of the ventral thecal sac. There is mild bilateral facet arthropathy. There is moderate left and mild right uncovertebral joint disease. There is moderate bilateral neuroforaminal stenosis. There is moderate spinal canal stenosis. C6-C7: Disc extrusion eccentric to the left resulting in minimal mass effect on the left ventral aspect of the spinal cord. There is no facet arthropathy. There is mild bilateral uncovertebral joint disease. There is severe left neuroforaminal stenosis due to disc extrusion. No right neuroforaminal stenosis. There is moderate spinal canal stenosis. C7-T1: The disk is normal in configuration. There is no facet arthropathy. There is no uncovertebral joint disease. There is no neuroforaminal stenosis. There is no spinal canal stenosis. IMPRESSION: Multilevel degenerative changes of the cervical spine detailed above resulting in moderate spinal canal stenosis at C4-C5, C5-C6, and C6-C7. Left-sided disc extrusion at C6-C7 causes severe left neuroforaminal stenosis. Assessment & Plan (03/04/2024 10:48 AM CDT): Chronic, improved Continue supportive care Assessment & Plan (02/25/2024 5:01 PM CDT): Reports she continues to do well. Assessment & Plan (01/13/2024 11:12 AM CDT): Status post surgery in August. She will discuss with her surgeon the possibility of dizziness related to her surgery as well as the safety of performing the Serene maneuver at home for possible benign positional vertigo Assessment & Plan (12/25/2023 10:21 AM CDT): shayan Fox Continue to follow with her surgeon JOSELO on CPAP 09/03/2023 Assessment & Plan (03/04/2024 10:53 AM CDT): Chronic, stable Continue cpap Assessment & Plan (12/25/2023 10:18 AM CDT): Chronic, stable Continue cpap Asthma 09/03/2023 Assessment & Plan (03/04/2024 10:49 AM CDT): Chronic, stable Continue singulair Continue to monitor her symptoms Assessment & Plan (12/25/2023 10:18 AM CDT): Chronic, stable Continue to monitor her symptoms Continue singulair Spinal stenosis of cervical region with radiculo rhys 08/19/2023 Assessment & Plan (03/04/2024 10:48 AM CDT): Chronic, improved Continue supportive care Stenosis of cervical spine with myelopathy 08/19 Assessment & Plan (03/04/2024 10:54 AM CDT): Chronic, improved Continue supportive care Cervical disc disorder at C6-C7 level with radic ulopathy 08/07/2023 Overview (11/19/2023): DANIAL - 07/2023 - short term relief Surgery 09/09/23 - Dr. Guzman - notes significant improvement. - MRI 07/2023 FINDINGS: There is trace retrolisthesis C4-C5 and C5-C6. Endplate degenerative signal changes surrounding the intervertebral disc spaces at C2-C3, C3-C4, and C4-C5. No acute fracture is identified. There is mild arthropathy at the craniocervical junction. The visualized portions of the skull base and the posterior fossa are normal. The spinal cord demonstrates normal signal intensity on all sequences. There is diffuse intervertebral disc desiccation. Intervertebral disc height loss C3-C4, C4-C5, and C5-C6. No soft tissue abnormality is identified. Normal signal voids are present in the vertebral arteries. LMA device noted within the airway C2-C3: The disk is normal in configuration. There is mild left facet arthropathy. There is no uncovertebral joint disease. There is no neuroforaminal stenosis. There is no spinal canal stenosis. C3-C4: The disk is normal in configuration. There is no facet arthropathy. There is mild bilateral uncovertebral joint disease. There is mild bilateral neuroforaminal stenosis. There is no spinal canal stenosis. C4-C5: Central disc protrusion which flattens the ventral aspect of the spinal cord. There is no facet arthropathy. There is mild bilateral uncovertebral joint disease. There is mild left neuroforaminal stenosis. There is moderate spinal canal stenosis. C5-C6: Disc bulge eccentric to the left causing effacement of the ventral thecal sac. There is mild bilateral facet arthropathy. There is moderate left and mild right uncovertebral joint disease. There is moderate bilateral neuroforaminal stenosis. There is moderate spinal canal stenosis. C6-C7: Disc extrusion eccentric to the left resulting in minimal mass effect on the left ventral aspect of the spinal cord. There is no facet arthropathy. There is mild bilateral uncovertebral joint disease. There is severe left neuroforaminal stenosis due to disc extrusion. No right neuroforaminal stenosis. There is moderate spinal canal stenosis. C7-T1: The disk is normal in configuration. There is no facet arthropathy. There is no uncovertebral joint disease. There is no neuroforaminal stenosis. There is no spinal canal stenosis. IMPRESSION: Multilevel degenerative changes of the cervical spine detailed above resulting in moderate spinal canal stenosis at C4-C5, C5-C6, and C6-C7. Left-sided disc extrusion at C6-C7 causes severe left neuroforaminal stenosis. Assessment & Plan (03/04/2024 10:50 AM CDT): Chronic, stable Continue supportive care Assessment & Plan (11/19/2023 8:37 AM CDT): Reviewed ortho notes. S/P surgery - follow with Dr. Guzman Assessment & Plan (08/07/2023 12:57 PM [employer] DEPARTMENT CHIEF LIBRARIAN): Following with Dr. Guzman. ENMANUEL done today. F/U 1 month to reassess. Class 1 obesity due to exces s calories with serious comorbidity and body mass index (BMI) of 34.0 to 34.9 in adult 03/11/2023 Assessment & Plan (12/28/2024 10:42 AM CDT): BMI Follow-up includes: education provided. Assessment & Plan (11/04/2024 10:13 AM CDT): Assessment & Plan (09/22/2024 2:33 PM CDT): BMI Follow-up includes: education provided. Assessment & Plan (03/04/2024 11:43 AM CDT): Chronic, persistent Reviewed medication options, but she would need to check with her insurance on coverage Reviewed that she has no history of thyroid cancer, multiple endocrine neoplasia in herself or her family, no personal history of pancreatitis If the medication is covered, we could certainly start semaglutide BMI Follow-up includes: nutrition counseling. Assessment & Plan (01/13/2024 11:12 AM CDT): BMI Follow-up includes: education provided. Assessment & Plan (01/02/2024 10:55 AM CDT): Chronic, stable Continue heart healthy diet BMI Follow-up includes: nutrition counseling. Osteoarthritis 03/11/2023 Gastroesophageal reflux disease 12/25/2022 Ankylosing spondylitis 07/17/2022 Overview (12/25/2023): chronic, stable continue to follow rheumatology Assessment & Plan (03/04/2024 10:44 AM CDT): Chronic, persistent Managed by rheumatology Continue current regimen Seasonal allergies 05/22/2022 Assessment & Plan (03/04/2024 10:53 AM CDT): Chronic, stable Continue singulair Hemorrhoids 11/14/2021 Diffuse idiopathic skeletal hyperostosis of thor acic spine 01/17/2021 Hyperlipidemia 01/22/2019 Assessment & Plan (03/04/2024 10:52 AM CDT): Chronic, improved Continue lipitor Assessment & Plan (01/13/2024 11:11 AM CDT): Chronic. Stable. Doing well on increased dose of atorvastatin 40 mg nightly. Assessment & Plan (12/25/2023 10:18 AM CDT): Chronic, stable Continue lipitor Essential hypertension 04/02/2018 Assessment & Plan (03/04/2024 10:51 AM CDT): Chronic- high today She has been checking at [id number] Continue current regimen Assessment & Plan (01/13/2024 11:11 AM CDT): Chronic. Orthostatic vitals negative with borderline controlled numbers 130-142 during orthostatic testing. - patient prefers to take lisinopril twice daily as she had in the past. She will start taking lisinopril 20 mg AM and 10 mg PM Assessment & Plan (12/25/2023 12:24 PM CDT): Chronic, elevated Patient had forgotten to take her blood pressure medication yesterday. Will have her restart her medication Update us with her blood pressure Set up BP check with us and her cuff For now- continue lisinopril, metoprolol Assessment & Plan (01/11/2019 9:54 PM CDT): Blood pressure under good control. No changes in meds. Watch salt intake. Palpitations 04/02/2018 Postop check 02/26/2018 Adnexal cyst 01/24/2018 Overview (02/17/2018): 62yo (BMI 28, LK) referred for left adnexal mass. Patient presented with left lower quadrant pain and CT 12/26/17 revealed a left adnexal septated mass measuring 5.6 x 8.6 x 6.1cm. Pelvic ultrasound performed 01/04/14 showing left ovary measuring 11.8 x 5.5 x 7.9cm with several cysts, the largest measuring 8.6 x 7.5 x 4.1cm. On 02/10/18 she underwent a laparoscopic LSO with operative findings notable for a 7-8cm loculated but benign-appearing cyst in the left adnexa with signs of hydrosalpinx and adhesions from the cyst to the left fallopian tube, pelvic sidewall and sigmoid, as well as a surgically absent uterus, right fallopian tube and ovary, and cervix. Pathology: ovary with serous cystadenoma, fallopian tube with no histopathologic abnormality. Assessment & Plan (03/04/2024 10:44 AM CDT): S/p surgery/excision She follows with [facility] [employer] [facility] Update me with any changes Assessment & Plan (12/25/2023 10:17 AM CDT): Chronic, uncertain level of control Will request results Continue to follow with [facility] [employer] [facility] Menopause present 05/05/2014 Assessment & Plan (03/04/2024 10:53 AM CDT): Chronic, stable Managed by [employer] Continue estrace Resolved Problems Problem Noted Date Diagnosed Date Resolved Date Posterior rhinorrhea 05/22/2022 024 Fatigue 01/22/2019 03/04/2024 Nonspecific abnormal results of function study of kidney 12/13/2018 12/25/2023 Low kidney function 11/17/2018 03/04/20 24 Assessment & Plan (12/25/2023 10:18 AM CDT): Chronic, uncertain level of control Follow up labs ordered Serous cystadenoma of left ovary 02/26/2018 03/04/2024 Pain in shoulder 06/21/2017 03/04/2024 Arthralgia of shoulder 06/28/201003/04 Immunizations Immunization Administration Dates Next Due Influenza, Quad, Adjuvantate d, Intramuscular 04/08/2022 Influenza, Quadrivalent, Светлана l Culture-based MDCK, Preservative Free, Antibiotic Free, Intramuscular 04/24/2017 Influenza, Quadrivalent, Hig h Dose, Preservative Free, Intrr 04/01/2023,04/10/2021,05/02/2020 Influenza, Quadrivalent, Spl it, Intramuscular 05/02/2020 Influenza, Trivalent, High D ose, Split, Preservative Free, Intramuscular 03/15/2024 Influenza, Trivalent, IM (MDV) 05/13/2015 Influenza, Trivalent, Preser vative Free, Intramuscular 04/15/2016 Influenza, Unspecified 04/23/2017,04/16/2016 Moderna SARS-CoV-2 Monovalen t Vaccination (12+ YRS) 10/07/2020 Pneumococcal Conjugate PCV 13 04/01/2019 Pneumococcal Conjugate Pcv20 12/25/2023 RSV Vaccine, Pref, Recombina nt, Subunit, Adjuvanted, PF, IM (Arexvy) 02/17/2024 Tdap 04/16/2016,04/15/2016 ZOSTER LIVE 05/28/2013,03/25/2013 ZOSTER Recombinant 06/19/2019,04/01/2019 Social History Tobacco Use Types Packs/Day Years Used Date Smoking Tobacco: Former Cigarettes 0.3 7 0 07/15/1968 - 07/15/1975 Smokeless Tobacco: Never Alcohol Use Standard Drinks/Week Comments Yes 5 (1 standard drink = 0.6 oz pure alcohol) drinks one alcoholic beverage a day AUDIT-C Answer Date Recorded Q1: How often do you have a drink containing alc ohol? 2-3 times a week 12/28/2024 Q2: How many drinks containi ng alcohol do you have on a typical day when you are drinking? 1 or 2 12/28/2024 Q3: How often do you have si x or more drinks on one occasion? Never 12/28/2024 PHQ-2 Answer Date Recorded PHQ-2 Total Score (If total score is 3 or more points, staff should administer the PHQ-9) 0 12/28/2024 Hunger Vital Sign Answer Date Recorded Within the past 12 months, y ou worried that your food would run out before you got the money to buy more. Never true 02/25/20 24 Within the past 12 months, t he food you bought just didn't last and you didn't have money to get more. Never true 02/25/2024 PHQ-9 Answer Date Recorded PHQ-9 Total Score 6 02/26/2024 Personal Safety Answer Date Recorded Have you ever been in or are you currently in a harmful physical or emotional relationship or is someone making you feel afraid or unsafe? Denies 09/09/2023 Comments No Sex and Gender Information Value Date Recorded Sex Assigned at Not on file Legal Sex Female 3:36 AM [employer] OR DEPARTMENT CHIEF LIBRARIAN Gender Identity Not on file Sexual Orientation Not on file Last Filed Vital Signs Vital Sign Reading Time Taken Comments Blood Pressure 130/72 01/07/2025 10:15 AM CDT Pulse 58 01/07/2025 10:15 AM CDT Temperature 37 C (98.6 F) 12/28/2024 10:06 AM CDT Respiratory Rate 16 12/28/2024 10:06 AM CDT Oxygen Saturation 96% 01/07/2025 10:15 AM CDT Inhaled Oxygen Concentration - - Weight 100.2 kg (221 lb) 01/07/2025 10:15 AM CDT Height 170.2 cm (5' 7.01) 01/07/2025 10:15 AM C DT Body Mass Index 34.61 01/07/2025 10:15 AM CDT Plan of Treatment Not on file Goals Goal Patient Goal Type Associated Problems Recent Progress Patient-Stated? Author CCM Chronic Pain Care Plan Chronic Care Management No change(02/24 9:05 AM CDT) No Carissa To, RN Note: Problem: Chronic Pain Goals: 1. Minimize further functional decline 2. Maximize quality of life 3. Control pain Strategies: - Activity/exercise program recommendation - Conservative stepwise pain medicine strategy with multi-disciplinary approach - Recommend healthy lifestyle strategies and compensatory methods as needed Medical Devices Implanted Type Area Data Management Specialist Device Identifier Shelf Expiration Date Model / Serial / Lot [employer] Cage Spinal Cervical 14d X 16w X 6h 6 Degree [id number] - [id number] Implanted:Qty : 1 on 09/09/2023 by Rishabh Guzman MD at [facility] Cage N/A: Spine Cervical [employer] [id number] 04/17/2028 [id number] / / [id number] [employer] Allograft Bone Putty 2.5cc 700-025 - S0 - [id number] Implanted:Qty : 1 on 09/09/2023 by Rishabh Guzman MD at [facility] Other - see comments [employer] 10/12/2025-025 / 0 / [id number] [employer] Cage Spinal Cervical 14d X 16w X 6h 6 Degree [id number] - [id number] Implanted:Qty : 1 on 09/09/2023 by Rishabh Guzman MD at [facility] Other - see comments N/A: Spine Cervical [employer] [id number] 04/17/2028 [id number] / / [id number] [employer] C-Dillan Maxan 51mm Level 3 Fix Spine Cervical Anterior Plate Bone [id number] - S0 - [id number] Implanted:Qty : 1 on 09/09/2023 by Rishabh Guzman MD at [facility] Plate N/A: Spine Cervical [employer] 12/11/2025 [id number] / 0 / [employer] Maxan 4mm 16mm Variable Angle Spine Screw Bone [id number] - S0 - [id number] Implanted:Qty : 8 on 09/09/2023 by Rishabh Guzman MD at [facility] Screw N/A: Spine Cervical [employer] 12/11/2025 [id number] / 0 / [employer] Allograft Bone Putty 2.5cc 700-025 - [id number] Implanted:Qty : 1 on 09/09/2023 by Rishabh Guzman MD at [facility] N/A: Spine Cervical [employer] 10/12/2025 700-025 / / [id number] Procedures Procedure Name Priority Date/Time Associated Diagnosis Comments XR TRANSFER OF OUTSIDE FILMS Routine 01/05/2025 10:15 AM CDT XR TRANSFER OF OUTSIDE FILMS Routine 01/05/2025 10:15 AM CDT NM INJECTION 1 TENDON SHEATH/LIGAMENT APONEUROSIS Routine 01/05/2025 9:40 AM CDT Right wrist pain NM INJECTION 1 TENDON SHEATH/LIGAMENT APONEUROSIS Routine 01/05/2025 9:40 AM CDT Right wrist pain NM INJECTION 1 TENDON SHEATH/LIGAMENT APONEUROSIS Routine 01/05/2025 9:40 AM CDT Right wrist pain XR HAND LEFT 3 OR MORE VIEWS Schedule Routine, Read Routine (OP Routine) 11/09/2024 Finger pain, left STOOL DNA COLOGUARD Routine 06/25/2024 7:15 AM BRANCH OR DEPARTMENT CHIEF LIBRARIAN Colon cancer screening HM MAMMOGRAPHY Routine 06/02/2024 7:37 AM BRANCH OR DEPARTMENT CHIEF LIBRARIAN HEPATITIS C ANTIBODY Routine 12/26/2023 8:25 AM CDT Need for hepatitis C screening test DEXA SCAN Routine 09/11/2022 COLONOSCOPY Routine 06/30/2014 from Last 3 Months or Most Recently Relevant to Health Maintenance Results * XR Outside Reference (01/05/2025 10:15 AM CDT) Impressions [facility] - 01/05/2025 10:15 AM CDT These images are for Reference purposes only and have not been reviewed by [facility]. There will be no report generated by a [facility]ologist. Narrative [facility] - 01/05/2025 10:15 AM CDT EXAMINATION: Images For Reference Purposes Only us Javier Jennings MD IMG XR PROCEDURES Final Resul t [facility] * XR Outside Reference (01/05/2025 10:15 AM CDT) Impressions [facility] - 01/05/2025 10:15 AM CDT These images are for Reference purposes only and have not been reviewed by [facility]. There will be no report generated by a [facility]iologist. Narrative [facility] - 01/05/2025 10:15 AM CDT EXAMINATION: Images For Reference Purposes Only us Javier Jennings MD IMG XR PROCEDURES Final Resul t [facility] * NM INJECTION 1 TENDON SHEATH/LIGAMENT APONEUROSIS, NM INJECTION 1 TENDON SHEATH/LIGAMENT APONEUROSIS (01/05/2025 9:40 AM CDT) Narrative Javier Jennings MD - 01/05/2025 9:40 AM CDT Javier Jennings MD 01/05/2025 1:26 PM Hand / Upper Extremity Injection: L thumb A1, L ring A1 Performed by: Javier Jennings MD Authorized by: Javier Jennings MD Condition: trigger finger Location: Thumb and ring finger Site: L thumb A1 Site: L ring A1 Medications Left Thumb Injection: 1 mL lidocaine 10 mg/mL (1 %); 40 mg methylPREDNISolone acetate 40 mg/mL Medications Left Ring Injection: 1 mL lidocaine 10 mg/mL (1 %); 40 mg methylPREDNISolone acetate 40 mg/mL us Javier Jennings MD IN CLINIC/BEDSIDE ORDERABLES Final Result * NM INJECTION 1 TENDON SHEATH/LIGAMENT APONEUROSIS (01/05/2025 9:40 AM CDT) Narrative Javier Jennings MD - 01/05/2025 9:40 AM CDT Javier Jennings MD 01/05/2025 1:26 PM De Quervadagmar's injection: R extensor compartment 1 Performed by: Javier Jennings MD Authorized by: Javier Jennings MD De Quervain's Injection: Consent Given by: Patient Timeout: prior to procedure the correct patient, procedure, and site was verified Verbal consent obtained?: Yes Written consent obtained?: No Supporting Documentation: Indications: Pain and therapeutic Procedure Details: Condition: de Quervain's Site: R extensor compartment 1 Prep: patient was prepped using a clean technique Needle Size: 28 G Approach: Volar Ultrasound guidance: No Medications: 40 mg methylPREDNISolone acetate 40 mg/mL; 1 mL lidocaine 10 mg/mL (1 %) Patient tolerance: Patient tolerated the procedure well with no immediate complications Javier Jennings MD IN CLINIC/BEDSIDE ORDERABLES Final Result * XR Hand Left 3+ Vw (11/09/2024) Anatomical Region Laterality Modality Upper Extremities, Hand Left Radiogra phic Imaging Shruthi CRUZ IMG XR PROCEDURES Final R esult * Stool DNA - Cologuard (06/25/2024 7:15 AM BRANCH OR DEPARTMENT CHIEF LIBRARIAN) Stool DNA - Cologuard Negative Negative [facility] (CLIA #:[id number]) Comment: NEGATIVE TEST RESULT. A negative Cologuard result indicates a low likelihood that a colorectal cancer (CRC) or advanced adenoma (adenomatous polyps with more advanced pre-malignant features) is present. The chance that a person with a negative Cologuard test has a colorectal cancer is less than 1 in 1500 (negative predictive value >99.9%) or has an advanced adenoma is less than 5.3% (negative predictive value 94.7%). These data are based on a prospective cross-sectional study of 10,000 individuals at average risk for colorectal cancer who were screened with both Cologuard and colonoscopy. (Hansa Cardona et al, N Engl J Med 2014;370(14):9876-7929) The normal value (reference range) for this assay is negative. COLOGUARD RE-SCREENING RECOMMENDATION: Periodic colorectal cancer screening is an important part of preventive healthcare for asymptomatic individuals at average risk for colorectal cancer. Following a negative Cologuard result, the [place] [employer] and U.S. Multi-Society Task Force screening guidelines recommend a Cologuard re-screening interval of 3 years. References: [place] [employer] Guideline for Colorectal Cancer Screening: https://www.cancer.org/cancer/jtwbn-bqhbbt-olosib/uljobzibe-oisrocfax-wzqhrlb/ac s-rec ommendations.html.; Tra CRYSTAL, Francis CR, Kassie WheelerK, Colorectal Cancer Screening: Recommendations for Physicians and Patients from the U.S. Multi-Society Task Force on Colorectal Cancer Screening , Am J Gastroenterology 2017; 112:1229-2281. TEST DESCRIPTION: Composite algorithmic analysis of stool DNA-biomarkers with hemoglobin immunoassay. Quantitative values of individual biomarkers are not reportable and are not associated with individual biomarker result reference ranges. Cologuard is intended for colorectal cancer screening of adults of either sex, 45 years or older, who are at average-risk for colorectal cancer (CRC). Cologuard has been approved for use by the U.S. FDA. The performance of Cologuard was established in a cross sectional study of average-risk adults aged 50-84. Cologuard performance in patients ages 45 to 49 years was estimated by sub-group analysis of near-age groups. Colonoscopies performed for a positive result may find as the most clinically significant lesion: colorectal cancer [4.0%], advanced adenoma (including sessile serrated polyps greater than or equal to 1cm diameter) [20%] or non- advanced adenoma [31%]; or no colorectal neoplasia [45%]. These estimates are derived from a prospective cross-sectional screening study of 10,000 individuals at average risk for colorectal cancer who were screened with both Cologuard and colonoscopy. (Hansa Haynes al, N Engl J Med 2014;370(14):3664-7618.) Cologuard may produce a false negative or false positive result (no colorectal cancer or precancerous polyp present at colonoscopy follow up). A negative Cologuard test result does not guarantee the absence of CRC or advanced adenoma (pre-cancer). The current Cologuard screening interval is every 3 years. ([place] [employer] and U.S. Multi-Society Task Force). Cologuard performance data in a 10,000 patient pivotal study using colonoscopy as the reference method can be accessed at the following location: www.[employer].Eachpal/results. Additional description of the Cologuard test process, warnings and precautions can be found at www.[employer].Eachpal. Stool 06/25/2024 7:15 AM BRANCH OR DEPARTMENT CHIEF LIBRARIAN 06/26/2024 10:05 AM BRANCH OR DEPARTMENT CHIEF LIBRARIAN us Nicole Love MD LAB BODY FLUIDS AND STOOLS ORDERABLES Final Result [facility] (CLIA #:[id number]) [place] [address] * MAMMOGRAPHY (06/02/2024 7:37 AM BRANCH OR DEPARTMENT CHIEF LIBRARIAN) Historical [facility] Final Result * Hepatitis C antibody Blood (12/26/2023 8:25 AM CDT) Hep C Ab Non Reactive Non Reactive [facility] - 01 Comment: HCV antibody alone does not differentiate between previously resolved infection and active infection. Equivocal and Reactive HCV antibody results should be followed up with an HCV RNA test to support the diagnosis of active HCV infection. Blood 12/26/2023 8:25 AM CDT 12/26/2023 Narrative [facility] - 12/27/2023 12:11 PM CDT Performed at: [address] [place] [address] [id number] Sanforizer: Eric Pedro PhD, Phone: [phone] Result [facility] Nicole Love MD LAB MICROBIOLOGY - GENERAL ORDERABLES Final Result [facility] * DEXA SCAN (09/11/2022) Scribed Deca Scan Normal Historical Ev [facility] Final Result * COLONOSCOPY (06/30/2014) Scribed Colonoscopy Normal Historical Ev [facility] Final Result from Last 3 Months or Most Recently Relevant to Health Maintenance Insurance MEDICARE [facility] [employer] PLUS MEDICARE MEDICARE [facility] Advance Directives For more information, please contact: [phone] * Full Code (Latest Code Status on File) Date Activated Date Inactivated Comments 09/09/2023 11:53 AM 09/10/2023 7:10 PM Care Teams Rubbish 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
--- OUTSIDE RECORDS SUMMARY | 2025-02-08 00:56 | XMS_ITS | Clinical Summary ---
Author Organization [facility] Address [address] [place] [id number] Phone Care Team Providers Care Joint Terminal Attack Controller Name Role Phone Arlin Reyes NP Primary Care Provider [phone] Allergies Active Allergy Reactions Criticality Noted Date Comments Amlodipine Rash,Swelling High 01/24/2018 Naproxen Rash Medium 12/13/2018 Medications cetirizine (ZyrTEC) 10 MG chewable tablet Chew 10 mg 1 (one) time each day. Active metoprolol succinate XL (TOPROL-XL) 50 MG 24 hr tablet Take 50 mg by mouth 1 (one) time each day. Active traMADol (ULTRAM) 50 MG tablet Take 50 mg by mouth every 6 (six) hours if needed for moderate pain. Active simvastatin (ZOCOR) 40 MG tablet Take 40 mg by mouth every night. Active lisinopril (PRINIVIL,ZESTR IL) 40 MG tablet Take 40 mg by mouth 1 (one) time each day. Active Cholecalciferol (VITAMIN D3) 1000 UNIT/SPRAY liquid Take by mouth. Activ e montelukast (SINGULAIR) 10 MG tablet Take 10 mg by mouth every night. Active ketotifen (ZADITOR) 0.025 % ophthalmic solution Zaditor 0.025 % (0.035 %) eye drops INSTILL 1 DROP INTO AFFECTED EYE(S) BY OPHTHALMIC ROUTE 2 TIMES PER DAY Active fluticasone (FLONASE) 50 MCG/ACT nasal spray fluticasone propionate 50 mcg/actuation nasal spray,suspension Active escitalopram (LEXAPRO) 10 MG tablet escitalopram 10 mg tablet TK 1 T PO QD Active Multiple Vitamin (MULTIVITAMIN) capsule Take 1 capsule by mouth daily Active hydroCHLOROthia zide (HYDRODIURIL) 25 MG tablet Take 12.5 mg by mouth daily 9 Active spironolactone (ALDACTONE) 25 MG tablet Take 12.5 mg by mouth 1 (one) time each day Active estradiol (ESTRACE) 0.5 MG tablet Take 0.5 mg by mouth 1 (one) time each day Active Active Problems Problem Noted Date Diagnosed Date Fatigue 01/22/2019 Hyperlipidemia 01/22/2019 Nonspecific abnormal results of function study o f kidney 12/13/2018 Decreased renal function 11/17/2018 Hypertensive disorder 04/02/2018 Overview (01/26/2019): Last Assessment & Plan: Blood pressure under good control. No changes in meds. Watch salt intake. Immunizations Immunization Administration Dates Next Due Influenza TIV (IM) 05/13/2015 Influenza, Unspecified 04/23/2017,04/16/2016 Pneumococcal Conjugate 13-Valent 04/01/2019 Tdap 04/16/2016 Zoster 03/25/2013 Family History Medical History Relation Comments Hypertension Brother Stroke Father Hypertension Mother Kidney disease Mother Hypertension Sister Relation Status Comments Brother Father Mother Sister Social History Tobacco Use Types Packs/Day Years Used Date Smoking Tobacco: Former Smokeless Tobacco: Never Alcohol Use Standard Drinks/Week Comments Yes 5 (1 standard drink = 0.6 oz pur e alcohol) Comments Unknown Sex and Gender Information Value Date Recorded Sex Assigned at Not on file Legal Sex Female 12:44 PM MDT Gender Identity Not on file Sexual Orientation Not on file Last Filed Vital Signs Vital Sign Reading Time Taken Comments Blood Pressure 126/70 04/13/2019 11:23 AM CDT Pulse 60 04/13/2019 11:23 AM CDT Temperature 36.6 C (97.8 F) 04/13/2019 11:23 AM CDT Respiratory Rate - - Oxygen Saturation - - Inhaled Oxygen Concentration - - Weight 90.7 kg (200 lb) 04/13/2019 11:23 AM CDT Height 172.7 cm (5' 8) 04/13/2019 11:23 AM CDT Body Mass Index 30.41 04/13/2019 11:23 AM CDT Plan of Treatment Health Maintenance Due Date Last Done Comments Pneumococcal PPSV23/PCV13 65 + Years / Low and Medium Risk (2 of 3 - PCV20 or PCV21) 04/01/2020 04/01/2019 Influenza Vaccine (#1) 2025 7, 04/16/2016, 05/13/2015 Insurance Care Teams Joint Terminal Attack Controller Relationship Specialty Start Date End Date Arlin Reyes NP [facility] [place] [address] PCP - General Internal Medicine 11/13/18
--- OUTSIDE RECORDS SUMMARY | 2025-02-08 00:56 | XMS_ITS | Clinical Summary ---
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 Name Role Phone Unavailable Primary Care Provider Unavailabl e Social History Tobacco Use Types Packs/Day Years Used Date Smoking Tobacco: Never Assessed Comments Unknown Sex and Gender Information Value Date Recorded Sex Assigned at Not on file Legal Sex Female 6:16 PM CDT Gender Identity Not on file Sexual Orientation Not on file Plan of Treatment Health Maintenance Due Date Last Done Comments Colorectal Cancer Screening Colonoscopy (10 Years) 1953 Hepatitis C 1971 DTaP, Tdap and Td Vaccines ( 1 - Tdap) 02/14/1972 Mammogram Screening 1993 Pneumococcal Vaccine: 50+ Ye ars (1 of 1 - PCV) 2003 Zoster Vaccines (1 of 2) 2003 Dexa Scan (General) 2018 COVID-19 Vaccine ( - 2023-2 5 season) 2024 RSV Immunization or 60+ Years (1 - 1-dose 75+ series) 02/14/2028 Meningococcal B Vaccine Aged Out No l onger eligible based on patient's age to complete this topic Meningococcal Vaccine Aged Out No morena tamra eligible based on patient's age to complete this topic RSV Immunizations Under 20 Months Aged Out No longer eligible based on patient's age to complete this topic
--- OUTSIDE RECORDS SUMMARY | 2025-02-08 00:56 | XMS_ITS | Clinical Summary ---
Author Organization [facility] Address [address] [place] [address] Care Team Providers Care Raimann Machine Operator Name Role Phone Nicole Love MD Primary Care Provi maryam Allergies Active Allergy Reactions Criticality Noted Date Comments Amlodipine Swelling,Rash Medium 01/24/2018 Naproxen Sodium Rash Medium Diclofenac Rash Medium 12/28/2024 Medications cholecalciferol, vitamin D3, 1,000 unit tablet,chewableInd ications:Vitamin D Deficiency Take 1 tablet/chew tab by mouth moisture meter reader before breakfast Active multivitamin capsuleIndications :Vitamin Deficiency Prevention Take 1 capsule by mouth moisture meter reader before breakfast Active golimumab (Simponi ARIA) 12.5 mg/mL solutionIndication s:Ankylosing Spondylitis Infuse 16 mL (200 mg total) into a venous catheter Every two months - Last infusion 12/202305/17/20 21 Active cyanocobalamin/fol ic acid (vitamin I76-zeqwq acid) 500-400 mcg tabletIndications: Vitamin Deficiency Prevention Take 1 tablet by mouth moisture meter reader before breakfast Active estradioL (ESTRACE) 0.5 mg [...] Maintenance: Last mammogram: 05/07 Last DEXA: at [facility], will request Last colon cancer screening- colonoscopy in 2013-interested in cologuard. Will order in June Last Tdap: up to date Last pneumonia: up [...] POA/Living will Health Maintenance: Last mammogram: At [facility]- will request Last DEXA: at [facility], will request Last colon cancer screening- colonoscopy [...] Assessment & Plan (12/25/2023 10:21 AM CDT): Chronic stable Continue to follow with her surgeon JOSELO [...] Guzman Assessment & Plan (08/07/2023 12:57 PM PAINT SPRAY TENDER): Following with Dr. Guzman. ENMANUEL done today. [...] high today She has been checking at [phone] Continue current regimen Assessment & Plan (01/13/2024 [...] AM CDT): S/p surgery/excision She follows with BICYCLE I ASSEMBLER Update me with any changes Assessment & Plan (12/25/2023 10:17 AM CDT): Chronic, uncertain level of control Will request results Continue to follow with BICYCLE I ASSEMBLER Menopause present 05/05/2014 Assessment & Plan (03/04/2024 10:53 AM CDT): Chronic, stable Managed by BICYCLE I ASSEMBLER Continue estrace Resolved Problems Problem Noted Date [...] shoulder 06/21/2017 03/04/2024 Arthralgia of shoulder 06/28/201003/04 Encounters Date Type Department Care Team Description 01/07/2025 10:30 AM CDT Office Visit [facility] Neurology [address] [place] [address] Lan Dunaway Si, MD Polyneuropathy (Primary Dx) 01/05/2025 10:15 AM CDT - 01/05/2025 11:59 PM CDT Hospital Encounter [facility] [address] [place] [id number] Discharge Disposition: Discharge to home or self care 01/05/2025 10:15 AM CDT - 01/05/2025 11:59 PM CDT Hospital Encounter [facility]) [address] [place] [phone] Discharge Disposition: Discharge to home or self care 01/05/2025 9:40 AM CDT Office Visit [facility] Orthopaedic Surgery [address] [place] [address] for Advanced Medicine 6th [place] [address] [place] [address] Javier Jennings MD Right wrist pain 12/28/2024 10:00 AM CDT Office Visit [facility] Family Medicine [address] [place] [phone] Shruthi Syed PA Dysfunction of both eustachian tubes (Primary Dx); Class 1 obesity due to excess calories with serious comorbidity and body mass index (BMI) of 34.0 to 34.9 in adult 11/11/2024 Results Follow-Up [facility] Medicine [address] [place] [phone] Shruthi Syed PA XR Hand Right 3+ Vw 11/10/2024 Results Follow-Up [address] [phone] Shruthi Syed PA XR Hand Left 3+ Vw from Last 3 Months Immunizations Immunization Administration Dates Next Due Influenza, [...] 04/16/2016,04/15/2016 ZOSTER LIVE 05/28/2013,03/25/2013 ZOSTER Recombinant 06/19/2019,04/01/2019 Surgical History Surgery Date Site/Laterality Comments TONSILLECTOMY WISDOM TOOTH EXTRACTION HYSTERECTOMY SHOULDER SURGERY 07/15/2009 - 07/14/2010 BUNIONECTOMY 12/11/2022 Left CATARACT EXTRACTION, BILATERAL 07/15/2018 - 07/14/2019 OVARIAN CYST REMOVAL 02/10/2018 CATARACT EXTRACTION 2019 ABDOMINAL SURGERY Ovarian cystectomy a nd Oophorectomy SPINAL FUSION 09/09/2023 C4-C7 ACDF Medical History Medical History Date Comments Arthritis GERD (gastroesophageal reflux disease) HTN (hypertension) Asthma Sleep apnea Motion sickness Serous cystadenoma of left ovary 02/26/2018 Arthralgia of shoulder 06/28/2010 Posterior rhinorrhea 05/22/2022 Family History Medical History Relation Name Comments Hypertension Brother Chidi Vasques Stroke Father Chidi Sr Family history of cerebrovascular accident (CVA) - (Added by TW Conv) Diabetes Mother Geri Family history of diabetes mellitus - (Added by TW Conv) Heart disease Mother Geri Family history of cardiac disorder - (Added by TW Conv) Heart failure Mother Geri Hypertension Mother Geri Family history of hypertension - (Added by TW Conv) Kidney disease Mother Geri Family histor y of kidney disease - (Added by TW Conv) Stroke Mother Geri Heart disease Other 1 Family history of cardiac disorder - (Added by TW Conv) Hypertension Other 2 Family history of hypertension - (Added by TW Conv) Diabetes Other 3 Family history of diabetes mellitus - (Added by TW Conv) Hypertension Sister Staci Anesthesia problems Neg Hx Relation Name Status Comments Brother Chidi Vasques Father Chidi Rosa Mother Geri Other 1 Other 2 Other 3 Sister Staci Social History Tobacco Use Types Packs/Day Years [...] on file Legal Sex Female 3:36 AM PAINT SPRAY TENDER Gender Identity Not on file Sexual Orientation Not on file Obstetrics History Para Term AB IAB SAB Ectopic Multiple Livin g Live Births 2 2 2 2 2 Date Outcome GA Total Labor Labor/2nd/3rd Weight Sex Type Anes PTL Nighat A1 A5 Name Clin Term Term Last Filed Vital Signs Vital Sign Reading [...] 01/07/2025 10:15 AM CDT Plan of Treatment Health Maintenance Due Date Last Done Comments Hepatitis B Screening 1973 Fall Risk Assessment 03/04/2025 03/04/2024, 09/10/19 Well Visit 65+ 03/04/2025 03/04/2024 Influenza Vaccine (#1) 2025 , 04/01/2023, 04/08/2022, Additional history exists Breast Cancer Screening-Mammogram 06/02/2025 06/02/2024, 09/20/2022, 09/20/2022 Depression Screening 12/28/2025 12/28/2024, 11/04/2024, 03/04/2024, Additional history exists DTaP/Tdap/Td Vaccine (3 - Td or Tdap) 04/16/2026 04/16/2016, 04/15/2016 Colon Cancer Screening-DNA Stool 06/25/2027 06/25/20 24, 06/30/2014 Osteoporosis Screening-Bone Density Scan 09/11/2027 09/11/2022 Colon Cancer Screening-CT Colonography Discontinued 06/30/2014 Colon Cancer Screening-Colonoscopy Discontinued 06/30/2014 Colon Cancer Screening-Sigmoidoscopy Discontinued 06/30/2014 Zoster Vaccine Completed 06/19/2019, 03/15, 05/28/2013, Additional history exists Pneumococcal vaccine 65+ Completed 12/25/2023, 03/15 Hepatitis C Screening Completed 12/26/2023 Colon Cancer Screening-FIT Discontinued 06/25/2024, Covid-19 Vaccine Completed 11/09/2024, 07/2023, 04/01/2023, Additional history exists Goals Goal Patient Goal Type Associated Problems Recent Progress Patient-Stated? Author CCM Chronic Pain Care Plan Chronic Care Management No change(02/24 9:05 AM CDT) No Carissa To, MICHAEL Note: Problem: Chronic Pain Goals: 1. Minimize further functional decline 2. Maximize quality of life 3. Control pain Strategies: - Activity/exercise program recommendation - Conservative stepwise pain medicine strategy with multi-disciplinary approach - Recommend healthy lifestyle strategies and compensatory methods as needed Medical Devices Implanted Type Area Scheduling Assistant Device Identifier Shelf Expiration Date Model / Serial / Lot [employer] Cage Spinal Cervical 14d X 16w X 6h 6 Degree [id number] - [id number] Implanted:Qty : 1 on 09/09/2023 by Rishabh Guzman MD at [facility] Cage N/A: Spine Cervical [employer] [id number] 04/17/2028 [id number] / / [id number] [employer] Allograft Bone Putty 2.5cc 700-025 - S0 - [id number] Implanted:Qty : 1 on 09/09/2023 by Rishabh Guzman MD at [facility] Other - see comments [employer] 10/12/2025 700-025 / 0 / [id number] [employer] Cage Spinal Cervical 14d X 16w X 6h 6 Degree [id number] - [id number] Implanted:Qty : 1 on 09/09/2023 by Rishabh Guzman MD at [facility] Other - see comments N/A: Spine Cervical [employer] [id number] 04/17/2028 [id number] / / [id number] [employer] C-Dillan Maxan 51mm Level 3 Fix Spine Cervical Anterior Plate Bone [id number] - S0 - [id number] Implanted:Qty : 1 on 09/09/2023 by Rishabh Guzman MD at [facility] Plate N/A: Spine Cervical [employer] 12/11/2025 [id number] / 0 / [employer] Maxan 4mm 16mm Variable Angle Spine Screw Bone [id number] - S0 - [id number] Implanted:Qty : 8 on 09/09/2023 by Rishabh Guzman MD at [facility] Screw N/A: Spine Cervical [employer] 12/11/2025 [id number] / 0 / [employer] Allograft Bone Putty 2.5cc 700-025 - [id number] Implanted:Qty : 1 on 09/09/2023 by Rishabh Guzman MD at [facility] N/A: Spine Cervical [employer] 10/12/2025 700-025 / / [id number] Procedures Procedure Name Priority Date/Time Associated Diagnosis Comments XR TRANSFER OF OUTSIDE FILMS Routine 01/05/2025 10:15 AM CDT XR TRANSFER OF OUTSIDE FILMS Routine 01/05/2025 10:15 AM CDT MT INJECTION 1 TENDON SHEATH/LIGAMENT APONEUROSIS Routine 01/05/2025 9:40 AM CDT Right wrist pain MT INJECTION 1 TENDON SHEATH/LIGAMENT APONEUROSIS Routine 01/05/2025 9:40 AM CDT Right wrist pain MT INJECTION 1 TENDON SHEATH/LIGAMENT APONEUROSIS Routine 01/05/2025 9:40 AM CDT Right wrist pain XR HAND LEFT 3 OR MORE VIEWS Schedule Routine, Read Routine (OP Routine) 11/09/2024 Finger pain, left STOOL DNA COLOGUARD Routine 06/25/2024 7:15 AM PAINT SPRAY TENDER Colon cancer screening HM MAMMOGRAPHY Routine 06/02/2024 7:37 AM PAINT SPRAY TENDER HEPATITIS C ANTIBODY Routine 12/26/2023 8:25 AM CDT Need for hepatitis C screening test DEXA SCAN Routine 09/11/2022 COLONOSCOPY Routine 06/30/2014 from Last 3 Months or Most Recently Relevant to Health Maintenance Results * XR Outside Reference (01/05/2025 10:15 AM CDT) Impressions [facility] - 01/05/2025 10:15 AM CDT These images are for Reference purposes only and have not been reviewed by [facility]iology. There will be no report generated by a [facility] Radiologist. Narrative [facility]_P[facility] - 01/05/2025 10:15 AM CDT EXAMINATION: Images For Reference Purposes Only us Javier Jennings MD IMG XR PROCEDURES Final Resul t Performing Organization Address [facility] de Phone Number [facility] * XR Outside Reference (01/05/2025 10:15 AM CDT) Impressions [facility] - 01/05/2025 10:15 AM CDT These images are for Reference purposes only and have not been reviewed by [facility]. There will be no report generated by a [facility] Radiologist. Narrative [facility] - 01/05/2025 10:15 AM CDT EXAMINATION: Images For Reference Purposes Only us Javier Jennings MD IMG XR PROCEDURES Final Resul t Performing Organization Address [facility] de Phone Number [facility] * MT INJECTION 1 TENDON SHEATH/LIGAMENT APONEUROSIS, MT INJECTION 1 TENDON SHEATH/LIGAMENT APONEUROSIS (01/05/2025 9:40 [...] %); 40 mg methylPREDNISolone acetate 40 mg/mL Javier Jennings MD IN CLINIC/BEDSIDE ORDERABLES Final Result * MT INJECTION 1 TENDON SHEATH/LIGAMENT APONEUROSIS (01/05/2025 9:40 AM CDT) Narrative Javier Jeninngs MD - 01/05/2025 9:40 AM CDT Javier Jennings MD 01/05/2025 1:26 PM De Quervain's injection: R extensor compartment 1 Performed by: Javier Jennings MD Authorized by: Javier Jennings MD De Quervadagmar's Injection: Consent Given by: Patient Timeout: prior [...] Stool DNA - Cologuard (06/25/2024 7:15 AM PAINT SPRAY TENDER) Stool DNA - Cologuard Negative Negative [facility] (CLIA #:[id number]) Comment: NEGATIVE TEST RESULT. A negative Cologuard [...] (Hansa Haynes al, N Engl J Med 2014;370(14):1376-9527) The normal value (reference range) for this assay is negative. COLOGUARD RE-SCREENING RECOMMENDATION: Periodic colorectal cancer screening is an important part of preventive healthcare for asymptomatic individuals at average risk for colorectal cancer. Following a negative Cologuard result, the [place] [employer] Society and U.S. Multi-Society Task Force screening guidelines recommend a Cologuard re-screening interval of 3 years. References: [place] [employer] Guideline for Colorectal Cancer Screening: https://www.cancer.org/cancer/icirg-bbyrjn-zqgxlc/vheaihswi-vtgerirgl-syincui/ac s-rec ommendations.html.; Tra DK, Francis KRISHNAMURTHY, Kassie WheelerK, Colorectal Cancer Screening: Recommendations for Physicians and Patients from the U.S. Multi-Society Task Force on Colorectal Cancer Screening , Am J Gastroenterology 2017; 112:2772-0767. TEST DESCRIPTION: Composite algorithmic analysis of stool [...] screened with both Cologuard and colonoscopy. (Hansa Adrian, N Engl J Med 2014;370(14):8911-9114.) Cologuard may produce a false negative or false positive result (no colorectal cancer or precancerous polyp present at colonoscopy follow up). A negative Cologuard test result does not guarantee the absence of CRC or advanced adenoma (pre-cancer). The current Cologuard screening interval is every 3 years. ([place] [employer] Society and U.S. Multi-Society Task Force). Cologuard performance data in a 10,000 patient pivotal study using colonoscopy as the reference method can be accessed at the following location: www.[employer].[facility]/results. Additional description of the Cologuard test process, warnings and precautions can be found at www.cologuard.com. Stool 06/25/2024 7:15 AM PAINT SPRAY TENDER 06/26/2024 10:05 AM PAINT SPRAY TENDER Nicole Love MD LAB BODY FLUIDS AND STOOLS ORDERABLES Final Result [facility] (CLIA #:[id number]) [place] [address] * HM MAMMOGRAPHY (06/02/2024 7:37 AM PAINT SPRAY TENDER) Krzysztof Provider HEALTH MAINTENANCE Final Result * Hepatitis C [...] - 12/27/2023 12:11 PM CDT Performed at: [address] [place] [id number] Metal Miner: Eric Pedro PhD, Phone: [phone] us Nicole Love MD LAB MICROBIOLOGY - GENERAL ORDERABLES Final Result [facility] - 01 * DEXA SCAN (09/11/2022) Scribed Deca Scan Normal us Historical Provider HEALTH MAINTENANCE Final Result * COLONOSCOPY (06/30/2014) Scribed Colonoscopy Normal Historical Provider HEALTH MAINTENANCE Final Result from Last 3 Months or Most Recently Relevant to Health Maintenance Insurance MEDICARE [facility] CHOICE [facility] HMO/PPO Address: [address] [address] [place] [address] MEDICARE MEDICARE [facility] Advance Directives For more information, please contact: [phone] * Full Code (Latest Code Status on File) Date Activated Date Inactivated Comments 09/09/2023 11:53 AM 09/10/2023 7:10 PM Care Teams Raimann Machine Operator Relationship Specialty Start Date End Date Nicole Love MD [address] [place] [address] PCP - General Family Medicine 12/25/23
--- OUTSIDE RECORDS SUMMARY | 2025-02-08 00:56 | XMS_ITS | Encounter Summary ---
Author Organization [facility] Address [address] [place] [address] Phone Care Team Providers Care Hod Carrier Name Role Phone Arlin Reyes FRAME GATE MORTISER OPERATOR Primary Care Provider [phone] Emma Steele FRAME GATE MORTISER OPERATOR Primary Care Provider + Nicole Love MD Primary Care Provi maryam Encounter Details Date Type Department Care Team (Late st Contact Info) Description 04/02/2018 Telephone [facility] Cardiology [address] Advanced Medicine 8th [place] [address] [place] [address] Matilda Baca MD [address] [place], [place] [id number] Social History Tobacco Use Types Packs/Day Years Used Date Smoking Tobacco: Former Cigarettes 0.3 7 1 969 - 1976 Smokeless Tobacco: Never Alcohol Use Standard Drinks/Week Comments Yes 5 (1 standard drink = 0.6 oz pure alcohol) drinks one alcoholic beverage a day Comments No Sex and Gender Information Value Date Recorded Sex Assigned at Not on file Legal Sex Female 3:36 AM TOGGLE PRESS OPERATOR Gender Identity Not on file Sexual Orientation Not on file documented as of this encounter Plan of Treatment Not on file documented as of this encounter Visit Diagnoses Not on filedocumented in this encounter Care Teams Hod Carrier Relationship Specialty Start Date End Date Arlin Reyes NP PCP - General Nurse Practitioner 01/24/18 05/30/23 Emma Steele NP PCP - General Nurse Practitioner 05/31/23 12/24/23 Nicole Love MD [address] [place] [address] PCP - General Family Medicine 12/25/23 documented as of this encounter
[2025-02-08 07:12] VITALS: BP 148/86; PULSE 72; RESP 20; TEMP 36.6; O2SAT 99; BMI 34.2
[2025-02-08] MEDS: LACTATED RINGERS 1,000 ML 150 ML IV CONT (07:21)
--- NOTE | 2025-02-08 07:36 | WPDANESEPPF ---
Anes - Initial Pre Proc Eval Procedure: Operation Date: 02/08/25 08:30 Proposed Procedures p EGD & Diagnostic Colonoscopy - René Tariq MD Date/Time: 02/08/25 07:36 Surgeon: René Tariq MD Pre Op Diagnosis: Gastro-esophageal reflux disease without esophagit Patient Data Age: 69 Gender: F Height: 1.7 m Weight: 99.3 kg Last Vital Signs Temp 36.6 C 02/08/25 07:12 Pulse 72 02/08/25 07:12 Resp 20 02/08/25 07:12 BP 148/86 H 02/08/25 07:12 Pulse Ox 99 02/08/25 07:12 O2 Del Method Room Air 02/08/25 07:12 Allergies Allergy/AdvReac Type Severity Reaction Status Date / Time naproxen (From Anaprox) Allergy Severe Rash Verified 02/08/25 07:09 amlodipine Allergy Mild swelling Verified 02/08/25 07:09 and rash diclofenac Allergy Rash Verified 02/08/25 07:09 Home Medications ?Medication ?Instructions ?Recorded ?Confirmed ?Type cetirizine 10 mg capsule 10 mg PO DAILY 12/21/19 02/08/25 History cholecalciferol (vitamin D3) 50 50 mcg PO DAILY 12/21/19 02/08/25 History mcg (2,000 unit) capsule metoprolol succinate 50 mg capsule 50 mg PO DAILY 12/21/19 02/08/25 History sprinkle, ext. release 24 hr montelukast 10 mg tablet 10 mg PO DAILY 12/21/19 02/08/25 History multivitamin 1 tablet PO DAILY 12/21/19 02/08/25 History atorvastatin 20 mg tablet 20 mg PO DAILY 07/02/22 02/08/25 History famotidine 40 mg tablet 40 mg PO DAILY 06/05/23 02/08/25 History lisinopril 10 mg tablet 10 mg PO DAILY 06/05/23 02/08/25 History tramadol 50 mg tablet 50 mg PO QID PRN Pain 06/05/23 01/28/25 History golimumab 100 mg/mL subcutaneous 200 mg subcut MONTHLY 02/12/24 01/28/25 History pen injector (Simponi) estradiol 0.5 mg tablet 0.5 mg PO DAILY #90 tabs 07/02/24 02/08/25 Rx dicyclomine 10 mg capsule 10 mg PO TID PRN abdominal pain 10/30/24 01/28/25 Rx #30 caps ondansetron 4 mg disintegrating 4 mg PO Q8H PRN nausea and 10/30/24 01/28/25 Rx tablet vomiting #30 tabs pregabalin 25 mg capsule 25 mg PO BID 10/30/24 02/08/25 History Patient hx anesthesia problems: none Family hx anesthesia problems: none Results Review: All pre-operative results and documents have been reviewed as part of the pre-operative evaluation. COUNTS INCLUDE 234 BEDS AT THE [facility] Past Medical History Medical History Hypertension Screening mammogram, encounter for Frequent UTI Anemia Asthma Bronchitis Anxiety and depression High cholesterol Chronic renal failure, stage 3 (moderate) Seasonal allergies Sleep apnea Cyst of ovary Surgical History Surgical History H/O midurethral sling procedure S/P cervical spinal fusion History of left salpingo-oophorectomy (02/10/18) removed Dr. Cali @ [facility] GynOnc, (L) ovary with serous cystadenoma History of surgery on arm (~2009) (L) arm calcium deposit removed History of removal of skin mole (~2008) (L) breast History of hysterectomy (~1992) partial History of tonsillectomy (~1957) Family History Family History Mother Atrial fibrillation Hypertension Diabetes mellitus Cerebrovascular accident Chronic renal failure stent in kidney Grandparent Hypertension maternal grandmother Breast cancer maternal grandmother paternal grandmother Alzheimer's disease maternal grandmother Father Cerebrovascular accident Macular degeneration Other Breast cancer maternal aunt Social History Social History Smoking status: Never smoker Second hand tobacco smoke exposure: No Alcohol intake: current Drinks per week: 3 Substance use: never Substance use type: does not use Living arrangements: with family Additional living arrangements comments: Occupation/Education: retired Gender identity (if verbalized by the patient): Female Sexual Orientation (if Verbalized by the Patient): Straight or Heterosexual Spiritual care concerns: No Anes - Eval Final PreProcedure Day of Procedure 02/08/25 07:36 Patient weight: obese Heart: regular rate and rhythm Lungs: clear to auscultation Airway: Mallampati scale class III Neurological: alert and oriented Last oral intake: >/= 8 hours ASA classification: III Emergent: no Anesthetic plan: proceed Anesthesia type and monitoring: general GIVS and standard monitoring Results Review: All pre-operative results and documents have been reviewed as part of the pre-operative evaluation. Informed Consent: The patient's anesthetic plan and its attendant risks and benefits were discussed with the patient/family/POA. Questions were solicited and answers provided to the satisfaction of the patient/family/POA.
--- NOTE | 2025-02-08 08:05 | PM.HPGS ---
History of Present Illness History of Present Illness Consent: Risks, benefits, and alternatives have been discussed and questions answered. Patient agrees to proceed with procedure. Chief complaint: Gastro-esophageal reflux disease without esophagit Narrative: Shirley Xiong is a 69 year old female with bloating and intermittent abdominal discomfort, here for egd and colonoscopy. Review of Systems Review of Systems: All systems reviewed & are unremarkable except as noted in HPI and below PMFSH Past Medical History Medical History (Updated 02/08/25 @ 08:06 by René Tariq MD) Colon cancer screening Abdominal pain Hypertension Screening mammogram, encounter for Frequent UTI Anemia Asthma Bronchitis Anxiety and depression High cholesterol Chronic renal failure, stage 3 (moderate) Seasonal allergies Sleep apnea Cyst of ovary Surgical History Surgical History H/O midurethral sling procedure S/P cervical spinal fusion History of left salpingo-oophorectomy (02/10/18) removed Dr. Cali @ [facility] GynOn, (L) ovary with serous cystadenoma History of surgery on arm (~2009) (L) arm calcium deposit removed History of removal of skin mole (~2008) (L) breast History of hysterectomy (~1992) partial History of tonsillectomy (~1957) Family History Family History Mother Atrial fibrillation Hypertension Diabetes mellitus Cerebrovascular accident Chronic renal failure stent in kidney Grandparent Hypertension maternal grandmother Breast cancer maternal grandmother paternal grandmother Alzheimer's disease maternal grandmother Father Cerebrovascular accident Macular degeneration Other Breast cancer maternal aunt Social History Social History Smoking status: Never smoker Second hand tobacco smoke exposure: No Alcohol intake: current Drinks per week: 3 Substance use: never Substance use type: does not use Living arrangements: with family Additional living arrangements comments: Occupation/Education: retired Gender identity (if verbalized by the patient): Female Sexual Orientation (if Verbalized by the Patient): Straight or Heterosexual Spiritual care concerns: No Meds Home Medications and Allergies Home Medications ?Medication ?Instructions ?Recorded ?Confirmed ?Type cetirizine 10 mg capsule 10 mg PO DAILY 12/21/19 02/08/25 History cholecalciferol (vitamin D3) 50 50 mcg PO DAILY 12/21/19 02/08/25 History mcg (2,000 unit) capsule metoprolol succinate 50 mg capsule 50 mg PO DAILY 12/21/19 02/08/25 History sprinkle, ext. release 24 hr montelukast 10 mg tablet 10 mg PO DAILY 12/21/19 02/08/25 History multivitamin 1 tablet PO DAILY 12/21/19 02/08/25 History atorvastatin 20 mg tablet 20 mg PO DAILY 07/02/22 02/08/25 History famotidine 40 mg tablet 40 mg PO DAILY 06/05/23 02/08/25 History lisinopril 10 mg tablet 10 mg PO DAILY 06/05/23 02/08/25 History tramadol 50 mg tablet 50 mg PO QID PRN Pain 06/05/23 01/28/25 History golimumab 100 mg/mL subcutaneous 200 mg subcut MONTHLY 02/12/24 01/28/25 History pen injector (Simponi) estradiol 0.5 mg tablet 0.5 mg PO DAILY #90 tabs 07/02/24 02/08/25 Rx dicyclomine 10 mg capsule 10 mg PO TID PRN abdominal pain 10/30/24 01/28/25 Rx #30 caps ondansetron 4 mg disintegrating 4 mg PO Q8H PRN nausea and 10/30/24 01/28/25 Rx tablet vomiting #30 tabs pregabalin 25 mg capsule 25 mg PO BID 10/30/24 02/08/25 History Allergies Allergy/AdvReac Type Severity Reaction Status Date / Time naproxen (From Anaprox) Allergy Severe Rash Verified 02/08/25 07:09 amlodipine Allergy Mild swelling Verified 02/08/25 07:09 and rash diclofenac Allergy Rash Verified 02/08/25 07:09 Vital Signs Vital Signs - 24 hr 02/08/25 07:12 Temperature 97.8 F Pulse Rate 72 Respiratory Rate 20 Blood Pressure 148/86 H Pulse Oximetry 99 Oxygen Delivery Room Air Exam Const: General: comfortable and no acute distress HENMT: Face/Nose/Sinus: Normal nares present Eyes: General: appearance normal, both eyes and all related structures Neck: Neck: no JVD Resp: Auscultation: clear to auscultation bilaterally Cardio: Rate: regular rate Rhythm: regular rhythm GI: Inspection: non-distended GI Palp: Yes Soft to palpation Skin: General skin exam: normal color Neuro: General: gait normal Speech: normal speech Extrem: General: normal to inspection Psych: Mental Status: mental status grossly normal Assessment and Plan Assessment and plan (1) Abdominal pain: Code(s): R10.9 - Unspecified abdominal pain Status: Acute Assessment and Plan: egd (2) Colon cancer screening: Code(s): Z12.11 - Encounter for screening for malignant neoplasm of colon Status: Acute Assessment and Plan: colonoscopy
[2025-02-08] MEDS: BENZOCAINE (*SP) 60 ML SPRAY CAN (HURRICAINE) 1 SPRAY MUCOUS MEM (08:12)
--- NOTE | 2025-02-08 08:16 | SUR.OPER ---
EGD end 815 COLONOSCOPY START 820
--- NOTE | 2025-02-08 08:21 | S_PTH ---
PATIENT: Shirley Xiong LOC: [facility]#:[id number] AGE/SX: 69/F ROOM: RE02/08/[address]: René Tariq MD : [id number] BED: DIS: 02/08/2025 SPEC #: [id number] RECD: 02/08/25 08:59 STATUS: JESSIE REKellie #: [id number] REGGIE: 02/08/25 08:[address]: René Tariq DEPT: [facility] Surgical RECD BY: Chelo Decker ENTERED: 02/08/25 09:00 SP TYPE: Surgical OTHR DR: Nicole LoveMD Tissues: A - Gastric Biopsy B - Small Bowel Bx Procedures: Hematoxylin and Eosin Stain Gross and Microscopic Level 4
[2025-02-08 08:31] VITALS: BP 137/69; PULSE 58; RESP 14; O2SAT 100
[2025-02-08 08:41] VITALS: BP 116/84; PULSE 65; RESP 18; O2SAT 99
[2025-02-08 08:51] VITALS: BP 145/81; PULSE 62; RESP 21; O2SAT 99
== END 2025-02-08 09:05 | disposition home or self-care (01) ==
PROVIDERS: PCP Family Medicine; Visit Provider Internal Medicine Gastroenterology
PROC: 0DJ08ZZ Inspection of Upper Intestinal Tract, Via Natural or Artificial Opening Endoscopic (ICD-10-PCS; CPT 45378; principal; 2025-02-08 08:30)
DX: Z12.11 Encounter for screening for malignant neoplasm of colon (principal); K64.8 Other hemorrhoids; K31.89 Other diseases of stomach and duodenum; I12.9 Hypertensive chronic kidney disease with stage 1 through stage 4 chronic kidney disease, or unspecified chronic kidney disease; N18.30 Chronic kidney disease, stage 3 unspecified; K21.9 Gastro-esophageal reflux disease without esophagitis; D64.9 Anemia, unspecified; J45.909 Unspecified asthma, uncomplicated; F41.8 Other specified anxiety disorders; E78.00 Pure hypercholesterolemia, unspecified; G47.30 Sleep apnea, unspecified; E66.9 Obesity, unspecified; Z68.34 Body mass index [BMI] 34.0-34.9, adult; Z79.891 Long term (current) use of opiate analgesic; Z79.620 Long term (current) use of immunosuppressive biologic; Z98.890 Other specified postprocedural states; Z98.1 Arthrodesis status; Z80.3 Family history of malignant neoplasm of breast; Z82.49 Family history of ischemic heart disease and other diseases of the circulatory system
CPT/HCPCS: 43239; G0105; 88305; J2003; J2704; J7120